=== PATIENT | female | born 1960 | race Caucasian/White ===

== ENCOUNTER 2016-06-23 11:48 | Inpatient (IN) | payer MEDICARE, OTHER ==
[2016-06-23] MEDS ORDERED: Albuterol/Ipratropium 3.0-0.5 MG/3 ML Neb Soln NEB PRN (12:09)
[2016-06-23] MEDS ORDERED: Nitroglycerin 0.4 MG Tab.SL SL PRN (12:10)
[2016-06-23] MEDS: ALPRAZolam 0.5 MG Tab PO PRN (12:41)
[2016-06-23] MEDS: Albuterol/Ipratropium 3.0-0.5 MG/3 ML Neb Soln NEB SCH ×2 (12:41→20:11)
[2016-06-23] MEDS: Azithromycin 250 MG Tab PO SCH (12:41)
[2016-06-23] MEDS: methylPREDNISolone Sodium Succinate 40 MG/1 ML SDV IVPUSH SCH ×2 (12:42→20:08)
[2016-06-23] MEDS: cefTRIAXone 2 GM Vial IVPUSH SCH (12:56)
[2016-06-23] MEDS: traMADol 50 MG Tab PO PRN ×2 (13:05→17:32)
[2016-06-23] MEDS ORDERED: Flu Vaccine 2016-17(36Mos+)/PF 60 MCG/0.5 ML Syringe IM ONE (14:00)
[2016-06-23] MEDS ORDERED: Pneumococcal 23-Valent Conjugate Vaccine 0.5 ML Syringe IM ONE (14:00)
[2016-06-23] MEDS: Albuterol 0.083% 2.5 MG/3 ML Neb Soln NEB PRN ×2 (14:43→17:33)
[2016-06-23] MEDS: tiZANidine 4 MG Tab PO SCH ×2 (15:49→20:08)
[2016-06-23] MEDS: Acetaminophen 325 MG Tab PO PRN ×2 (15:51→20:19)
--- NOTE | 2016-06-23 15:55 | PCM.HP ---
H&P History of Present Illness - General Date of Service: 06/23/16 Admit Problem/Dx: Admission Diagnosis/Problem Admission Diagnosis/Problem Pneumonia Community acquired pneumonia Reactive airway disease - History of Present Illness Initial Comments - Free Text/Narative: 55 yo female admitted to acute care after presenting to the clinic with community acquired pneumonia. Patient was initially seen at the walk-in clinic at [facility] on 06/21 where she was started on prednisone 40 mg daily, Z pack, Tessalon pearls, and Robitussin-codeine. She did not improve and then went into the [facility] ER on 06/22 where lab work was repeated. Patient was sent home without any changes to treatment. Then she presented to [facility] the morning of 06/23 as her symptoms were still not improving. Complained of a dry cough and SOB. No fevers or chills but has been diaphoretic. No congestion or rhinorrhea. Sore throat was present due to the coughing. Lab work and a CXR was repeated. The WBC had increased from 12.0 yesterday to 12.8 today. CRP and creatinine improved. Albuterol nebulizer was given in the clinic but the patient did not find improvement. Katlin was willing to stay for admission as symptoms were not improving with outpatient treatment. Chest Pain Score (Numeric/FACES): 8 - Related Data Allergies/Adverse Reactions: Allergies Allergy/AdvReac Type Severity Reaction Status Date / Time lisinopril Allergy Shortness Verified 06/14/16 10:47 of Breath milnacipran [From Savella] Allergy Cannot Verified 06/14/16 10:47 Remember gabapentin AdvReac Anxiety Verified 06/23/16 13:35 Home Medications: Home Meds Albuterol Sulfate [Proair Hfa] 2 puff IH Q4HR PRN 02/11/16 [History] FLUoxetine [PROzac] 60 mg PO DAILY 02/11/16 [History] Levothyroxine Sodium [Synthroid] 200 mcg PO DAILY 02/11/16 [History] Metoprolol Succinate [Toprol XL] 50 mg PO DAILY 02/11/16 [History] Pravastatin Sodium 80 mg PO DAILY 02/11/16 [History] QUEtiapine Fumarate [Quetiapine Fumarate] 100 mg PO BEDTIME 02/11/16 [History] amLODIPine [Norvasc] 10 mg PO DAILY 02/11/16 [History] metFORMIN [Glucophage] 500 mg PO BIDMEALS 02/11/16 [History] Omeprazole Magnesium [Prilosec Otc] 40 mg PO DAILY 06/14/16 [History] ALPRAZolam [Xanax] 0.5 mg PO TID PRN 06/23/16 [History] Azithromycin [Zithromax] 250 mg PO DAILY 06/23/16 [History] Benzonatate 200 mg PO TID PRN 06/23/16 [History] Codeine Phosphate/Guaifenesin [G Tussin AC Liquid] 5 - 10 ml PO QID PRN [History] Diclofenac Sodium [Voltaren 1% Gel] 2 gm TOP BID 06/23/16 [History] Hydrochlorothiazide 12.5 mg PO DAILY 06/23/16 [History] Levothyroxine Sodium [Synthroid] 75 mcg PO DAILY 06/23/16 [History] Multivitamin [Multiple Vitamins] 1 each PO DAILY 06/23/16 [History] Nitroglycerin [Nitrostat] 0.4 mg SL ASDIRECTED PRN 06/23/16 [History] Prednisone [IMW: predniSONE] 40 mg PO WITHBREAKFAST 06/23/16 [History] Pregabalin [Lyrica] 75 mg PO BID 06/23/16 [History] Ranitidine [Zantac] 150 mg PO BEDTIME 06/23/16 [History] metroNIDAZOLE [Metronidazole] 1 gm TOP BID 06/23/16 [History] tiZANidine [Zanaflex] 4 mg PO TID 06/23/16 [History] traMADol HCl [Ultram] 50 mg PO QID PRN 06/23/16 [History] Past Medical History HEENT History: Reports: None Cardiovascular History: Reports: Heart Failure, High cholesterol, Hypertension Respiratory History: Reports: Asthma Gastrointestinal History: Reports: Other (see below) Other Gastrointestinal History: acid reflux Genitourinary History: Reports: Urinary incontinence Musculoskeletal History: Reports: Arthritis, Back pain, chronic, Neck pain, chronic Neurological History: Reports: Neuropathy, diabetic Psychiatric History: Reports: Anxiety, Depression, Mood swings, Panic attack Endocrine/Metabolic History: Reports: Diabetes, type II - Past Surgical History Cardiovascular Surgical History: Reports: None Respiratory Surgical History: Reports: None GI Surgical History: Reports: None Female Surgical History: Reports: Breast reduction, Hysterectomy Musculoskeletal Surgical History: Reports: Knee replacement Social & Family History - Family History Family Medical History: Unobtainable - Tobacco Use Smoking Status *Q: Former Smoker Used Tobacco, but Quit: Yes Month Tobacco Last Used: Second Hand Smoke Exposure: No - Caffeine Use Caffeine Use: Reports: Soda - Recreational Drug Use Recreational Drug Use: No H&P Review of Systems - Review of Systems: Review Of Systems: See Below General: Reports: fatigue, diaphoresis. Denies: fever, chills HEENT: Reports: sore throat. Denies: ear pain, rhinitis, post nasal drip, sinus congestion Pulmonary: Reports: Shortness of Breath, Wheezing, Cough. Denies: Sputum Cardiovascular: Reports: dyspnea on exertion Exam - Exam Exam: See Below - Vital Signs Vital Signs: Last Vital Signs Temp 37.1 C 06/23/16 14:00 Pulse 89 06/23/16 14:00 Resp 22 H 06/23/16 11:52 BP 155/83 H 06/23/16 14:00 Pulse Ox 94 L 06/23/16 14:00 Weight: 123.831 kg - Exam Quality Assessment: No: supplemental oxygen General: alert, oriented, mild distress HEENT: Mucosa moist & pink, Nares patent, Posterior pharynx clear, TMs clear Lungs: Decreased breath sounds, Rhonchi, Wheezing, Other (Unable to talk or deep breath without coughing, mild respiratory distress ). No: Rales Cardiovascular: regular rate, regular rhythm, normal S1, normal S2 Skin: warm, dry Neuro Extensive - Mental Status: alert, oriented x3, normal mood/affect, normal cognition, memory intact Neuro Extensive - Motor, Sensory, Reflexes: normal gait Psychiatric: alert, normal affect, normal mood *Q Meaningful Use (ADM) - VTE *Q VTE Criteria *Q: - Stroke *Q Stroke Criteria *Q: - AMI *Q AMI Criteria *Q: Problem List Initiated/Reviewed/Updated: Yes Orders Last 24hrs: Active Orders 24 hr Category Date Time Status Admission Status [Patient Status] [ADT] Routine ADT 06/23/16 11:50 Active Patient Status [ADT] Routine ADT 06/23/16 12:00 Active Accu Check [Blood Glucose Check, Bedside] [RC] 07,11,17 Care 06/23/16 12:16 Active ,20 Cooling Warming Measures [RC] .PRN Care 06/23/16 14:50 Active Intake and Output [RC] 06,18 Care 06/23/16 12:02 Active Oxygen Therapy [RC] PRN Care 06/23/16 12:02 Active RT Aerosol Therapy [RC] ASDIRECTED Care 06/23/16 12:07 Active RT Aerosol Therapy [RC] ASDIRECTED Care 06/23/16 12:10 Active Up ad Ana [RC] .PRN Care 06/23/16 12:00 Active Vital Signs [RC] 06,10,14,18,22,02 Care 06/23/16 12:00 Active Regular Diet [DIET] Diet 06/23/16 Lunch Active CBC WITH AUTO DIFF [HEME] Routine Lab 06/24/16 05:11 Ordered CMP [COMPREHENSIVE METABOLIC PN,CMP] [CHEM] Routine Lab 06/24/16 05:11 Ordered ALPRAZolam [Xanax] Med 06/23/16 12:10 Active 0.5 mg PO TID PRN Acetaminophen [Tylenol] Med 06/23/16 12:00 Active 650 mg PO Q4H PRN Albuterol [Proventil Neb Soln] Med 06/23/16 12:05 Active 2.5 mg NEB Q2H PRN Albuterol/Ipratropium [DuoNeb 3.0-0.5 MG/3 ML] Med 06/23/16 13:00 Active 3 ml NEB Q6HRRT Azithromycin [Zithromax] Med 06/23/16 12:30 Active 500 mg PO DAILY Diclofenac Sodium [Voltaren 1% Gel] Med 06/23/16 20:00 Active 2 gm TOP BID FLUoxetine [PROzac] Med 06/24/16 08:00 Active 60 mg PO DAILY Hydrochlorothiazide Med 06/24/16 08:00 Active 12.5 mg PO DAILY Insulin Detemir [Levemir] Med 06/23/16 20:00 Active 8 unit SUBCUT BEDTIME Levothyroxine Med 06/24/16 07:00 Active 75 mcg PO DAILY@0700 Levothyroxine [Synthroid] Med 06/24/16 07:00 Active 200 mcg PO DAILY@0700 Metoprolol Succinate [Toprol XL] Med 06/24/16 08:00 Active 50 mg PO DAILY Multivitamins w-Iron/Ca/FA/Min [Thera M Plus] Med 06/24/16 08:00 Active 1 tab PO DAILY Nitroglycerin [Nitrostat] Med 06/23/16 12:10 Active 0.4 mg SL ASDIRECTED PRN Omeprazole Med 06/24/16 07:00 Active 40 mg PO DAILY@0700 Pregabalin [Lyrica] Med 06/23/16 20:00 Active 75 mg PO BID QUEtiapine [SEROquel] Med 06/23/16 20:00 Active 100 mg PO BEDTIME Simvastatin [Zocor] Med 06/24/16 20:00 Active 20 mg PO BEDTIME amLODIPine [Norvasc] Med 06/24/16 08:00 Active 10 mg PO DAILY cefTRIAXone [Rocephin] Med 06/23/16 13:00 Active 2 gm IVPUSH DAILY methylPREDNISolone Sod Succ [Solu-MEDROL] Med 06/23/16 12:45 Active 40 mg IVPUSH BID tiZANidine [Zanaflex] Med 06/23/16 20:00 Active 4 mg PO TID traMADol [Ultram] Med 06/23/16 12:10 Active 50 mg PO QID PRN K Pad [Heat Therapy] [OM.PC] Routine Oth 06/23/16 14:50 Ordered Code Status [Resuscitation Status] Routine Resus Stat 06/23/16 12:03 Ordered Medication Orders Acetaminophen (Tylenol) 650 mg PO Q4H PRN PRN Reason: analgesia/fever Albuterol (Proventil Neb Soln) 2.5 mg NEB Q2H PRN PRN Reason: Shortness of Breath Last Admin: 06/23/16 14:43 Dose: 2.5 mg Albuterol/Ipratropium (Duoneb 3.0-0.5 Mg/3 Ml) 3 ml NEB Q6HRRT [facility] Last Admin: 06/23/16 12:41 Dose: 3 ml Alprazolam (Xanax) 0.5 mg PO TID PRN PRN Reason: Anxiety Last Admin: 06/23/16 12:41 Dose: 0.5 mg Amlodipine Besylate (Norvasc) 10 mg PO DAILY [facility] Azithromycin (Zithromax) 500 mg PO DAILY [facility] Last Admin: 06/23/16 12:41 Dose: 500 mg Ceftriaxone Sodium (Rocephin) 2 gm IVPUSH DAILY [facility] Last Admin: 06/23/16 12:56 Dose: 2 gm Diclofenac Sodium (Voltaren 1% Gel) 2 gm TOP BID [facility] Fluoxetine HCl (Prozac) 60 mg PO DAILY [facility] Hydrochlorothiazide (Hydrochlorothiazide) 12.5 mg PO DAILY [facility] Insulin Detemir (Levemir) 8 unit SUBCUT BEDTIME [facility] Levothyroxine Sodium (Synthroid) 200 mcg PO DAILY@0700 [facility] Levothyroxine Sodium (Levothyroxine) 75 mcg PO DAILY@0700 [facility] Methylprednisolone Sodium Succinate (Solu-Medrol) 40 mg IVPUSH BID [facility] Last Admin: 06/23/16 12:42 Dose: 40 mg Metoprolol Succinate (Toprol Xl) 50 mg PO DAILY [facility] Multivitamins/Minerals (Thera M Plus) 1 tab PO DAILY [facility] Nitroglycerin (Nitrostat) 0.4 mg SL ASDIRECTED PRN PRN Reason: Chest Pain Omeprazole (Omeprazole) 40 mg PO DAILY@0700 [facility] Pregabalin (Lyrica) 75 mg PO BID [facility] Quetiapine Fumarate (Seroquel) 100 mg PO BEDTIME [facility] Simvastatin (Zocor) 20 mg PO BEDTIME [facility] Tizanidine HCl (Zanaflex) 4 mg PO TID [facility] Tramadol HCl (Ultram) 50 mg PO QID PRN PRN Reason: Pain Last Admin: 06/23/16 13:05 Dose: 50 mg Assessment/Plan Comment:: Community acquired pneumonia Reactive airway disease DM II HTN Hypothyroidism 1. Azithromycin 500 mg PO and Rocephin 2 g IV daily 2. QID Duonebs with prn albuterol nebs Q2H 3. Hold metformin and add 8 units of Levemir 4. QID accuchecks 5. 40 mg IV Solumedrol BID 6. Repeat lab work in the AM 7. Full code
[2016-06-23] MEDS ORDERED: Pregabalin 75 MG Cap PO SCH (20:00)
[2016-06-23] MEDS: QUEtiapine 100 MG Tab PO SCH (20:09)
[2016-06-23] MEDS: Diclofenac Sodium 1% Gel 100 GM Tube TOP SCH (20:11)
[2016-06-23] MEDS: Insulin Detemir 100 Units/ML 3 ML Pen SUBCUT SCH (20:19)
[2016-06-23] MEDS: Pregabalin 25 MG Cap PO SCH (21:21)
[2016-06-24] MEDS: Albuterol/Ipratropium 3.0-0.5 MG/3 ML Neb Soln NEB SCH ×4 (00:41→19:19)
[2016-06-24] MEDS: Acetaminophen 325 MG Tab PO PRN ×3 (01:01→14:08)
[2016-06-24] MEDS: traMADol 50 MG Tab PO PRN ×3 (03:55→19:38)
[2016-06-24] MEDS: Albuterol 0.083% 2.5 MG/3 ML Neb Soln NEB PRN ×3 (04:46→15:53)
[2016-06-24] MEDS: Levothyroxine 100 MCG Tab PO SCH (06:30)
[2016-06-24] MEDS: Levothyroxine 75 MCG Tab PO SCH (06:32)
[2016-06-24] MEDS ORDERED: Omeprazole 20 MG Cap.CR PO SCH (07:00)
[2016-06-24 07:01] LABS: CHLORIDE,CL 98 mmol/L (98-107); SODIUM,NA 138 mmol/L (136-145)
[2016-06-24] MEDS: FLUoxetine 20 MG Cap PO SCH (08:21)
[2016-06-24] MEDS: Multivitamins with Iron/Calcium/Folic Acid/Minerals Tab PO SCH (08:22)
[2016-06-24] MEDS: tiZANidine 4 MG Tab PO SCH ×3 (08:22→19:37)
[2016-06-24] MEDS: Hydrochlorothiazide 12.5 MG Cap PO SCH (08:22)
[2016-06-24] MEDS: Pregabalin 25 MG Cap PO SCH ×2 (08:23→19:37)
[2016-06-24] MEDS: Azithromycin 250 MG Tab PO SCH (08:24)
[2016-06-24] MEDS: Metoprolol Succinate 50 MG Tab.ER PO SCH (08:24)
[2016-06-24] MEDS: amLODIPine 10 MG Tab PO SCH (08:25)
[2016-06-24] MEDS: methylPREDNISolone Sodium Succinate 40 MG/1 ML SDV IVPUSH SCH ×2 (08:26→19:38)
[2016-06-24] MEDS: cefTRIAXone 2 GM Vial IVPUSH SCH (08:27)
[2016-06-24] MEDS: Diclofenac Sodium 1% Gel 100 GM Tube TOP SCH ×2 (08:29→20:41)
--- NOTE | 2016-06-24 08:49 | PCM.PN ---
- General Info Date of Service: 06/24/16 Admission Dx/Problem (Free Text): 55 yo female seen on hospital day 2 for pneumonia. Patient states that she is doing much better today. Will still have some SOB with activity but this is greatly improved. She is still coughing but this continues to be unproductive. No fevers since admission. Nurses were concerned of possible UTI yesterday due to urinary sediment, but UA was negative. Patient does feel she has a yeast infection coming on which is common for her when on antibiotics. Would like to do treatment for this at some point. Her only concern today is regarding her omeprazole. Patient stopped this several weeks ago due to side effects of abdominal cramping and diarrhea. Would like to stop this. Blood sugar was 168 this morning. She is normally on Metformin 500 mg BID when outpatient, but sugars were increased due to the steroids. Currently on 8 units of Levemir at bedtime. No other questions or concerns at this time. - Review of Systems General: Denies: Fever, Chills HEENT: Denies: sinus congestion, sore throat, rhinitis Pulmonary: Reports: shortness of breath (improved ), cough (dry) Cardiovascular: Reports: Other (rib pain/tenderness ) Gastrointestinal: Denies: Abdominal pain, Constipation, Diarrhea - Patient Data Vitals - most recent: Last Vital Signs Temp 36.6 C 06/24/16 05:50 Pulse 82 06/24/16 08:24 Resp 20 06/24/16 05:50 BP 137/77 06/24/16 08:25 Pulse Ox 94 L 06/24/16 05:50 Weight - most recent: 123.831 kg I&O - last 24 hours: Intake & Output 06/23/16 06/24/16 06/24/16 22:59 06:59 14:59 Intake Total 360 400 180 Output Total 450 1100 Balance -90 -700 180 Lab Results last 24 hrs: Laboratory Results - last 24 hr 06/23/16 06/23/16 06/23/16 Range/Units 16:09 16:21 20:15 WBC (4.0-10.0) x10^3/uL RBC (4.00-5.50) x10^6/uL Hgb (12.0-16.0) g/dL Hct (33.0-47.0) % MCV (78.0-93.0) fL MCH (26.0-32.0) pg MCHC (32.0-36.0) g/dL RDW Coeff of Maral (10.0-15.0) % Plt Count (130-400) x10^3/uL Add Manual Diff Neutrophils % (Manual) (50-80) % Band Neutrophils % (0-6) % Lymphocytes % (Manual) (25-50) % Monocytes % (Manual) (2-11) % Basophils % (Manual) (0-1) % Blast Cells % (0) % Platelet Estimate Sodium (136-145) mmol/L Potassium (3.5-5.1) mmol/L Chloride (98-107) mmol/L Carbon Dioxide (21-32) mmol/L BUN (7-18) mg/dL Creatinine (0.55-1.02) mg/dL Est Cr Clr Drug Dosing mL/min Estimated GFR (MDRD) Glucose (74-106) mg/dL POC Glucose 189 H 272 H (74-106) mg/dL Calcium (8.5-10.1) mg/dL Corrected Calcium (8.5-10.1) mg/dL Total Bilirubin (0.2-1.0) mg/dL AST (15-37) U/L ALT (14-59) U/L Alkaline Phosphatase (46-116) U/L Total Protein (6.4-8.2) g/dL Albumin (3.4-5.0) g/dL Globulin Albumin/Globulin Ratio Urine Color Yellow (YELLOW) Urine Appearance Slightly cloudy H (CLEAR) Urine pH 6.5 (5.0-8.0) Ur Specific [place] 1.020 Urine Protein 100 H (NEGATIVE) mg/dL Urine Glucose (UA) Negative (NEGATIVE) mg/dL Urine Ketones Negative (NEGATIVE) mg/dL Urine Occult Blood Small H (NEGATIVE) Urine Nitrite Negative (NEGATIVE) Urine Bilirubin Negative (NEGATIVE) Urine Urobilinogen 0.2 (0.2) EU/dL Ur Leukocyte Esterase Negative (NEGATIVE) Urine RBC 0-5 (NOT SEEN) /HPF Urine WBC 0-5 (NOT SEEN) /HPF Ur Squamous Epith Cells Rare (NEGATIVE) /HPF Amorphous Sediment Few Urine Bacteria Rare (NEGATIVE) /HPF Hyaline Casts Occasional H (NEGATIVE) /HPF Urine Mucus Few H (NEGATIVE) /LPF 06/24/16 06/24/16 06/24/16 Range/Units 06:30 06:30 06:32 WBC 11.6 H (4.0-10.0) x10^3/uL RBC 4.09 (4.00-5.50) x10^6/uL Hgb 12.8 (12.0-16.0) g/dL Hct 38.2 (33.0-47.0) % MCV 93.4 H (78.0-93.0) fL MCH 31.3 (26.0-32.0) pg MCHC 33.5 (32.0-36.0) g/dL RDW Coeff of Maral 14.6 (10.0-15.0) % Plt Count 348 (130-400) x10^3/uL Add Manual Diff Yes Neutrophils % (Manual) 75 (50-80) % Band Neutrophils % 4 (0-6) % Lymphocytes % (Manual) 11 L (25-50) % Monocytes % (Manual) 8 (2-11) % Basophils % (Manual) 1 (0-1) % Blast Cells % 1 H (0) % Platelet Estimate Adequate Sodium 138 (136-145) mmol/L Potassium 4.1 (3.5-5.1) mmol/L Chloride 98 (98-107) mmol/L Carbon Dioxide 30 (21-32) mmol/L BUN 14 (7-18) mg/dL Creatinine 0.8 (0.55-1.02) mg/dL Est Cr Clr Drug Dosing 74.38 mL/min Estimated GFR (MDRD) > 60 Glucose 168 H (74-106) mg/dL POC Glucose 168 H (74-106) mg/dL Calcium 9.2 (8.5-10.1) mg/dL Corrected Calcium 9.68 (8.5-10.1) mg/dL Total Bilirubin 0.3 (0.2-1.0) mg/dL AST 111 H (15-37) U/L ALT 215 H (14-59) U/L Alkaline Phosphatase 168 H (46-116) U/L Total Protein 8.2 (6.4-8.2) g/dL Albumin 3.4 (3.4-5.0) g/dL Globulin 4.8 Albumin/Globulin Ratio 0.71 Urine Color (YELLOW) Urine Appearance (CLEAR) Urine pH (5.0-8.0) Ur Specific [place] Urine Protein (NEGATIVE) mg/dL Urine Glucose (UA) (NEGATIVE) mg/dL Urine Ketones (NEGATIVE) mg/dL Urine Occult Blood (NEGATIVE) Urine Nitrite (NEGATIVE) Urine Bilirubin (NEGATIVE) Urine Urobilinogen (0.2) EU/dL Ur Leukocyte Esterase (NEGATIVE) Urine RBC (NOT SEEN) /HPF Urine WBC (NOT SEEN) /HPF Ur Squamous Epith Cells (NEGATIVE) /HPF Amorphous Sediment Urine Bacteria (NEGATIVE) /HPF Hyaline Casts (NEGATIVE) /HPF Urine Mucus (NEGATIVE) /LPF Med Orders - Current: Current Medications Acetaminophen (Tylenol) 650 mg PO Q4H PRN PRN Reason: analgesia/fever Last Admin: 06/24/16 08:39 Dose: 650 mg Albuterol (Proventil Neb Soln) 2.5 mg NEB Q2H PRN PRN Reason: Shortness of Breath Last Admin: 06/24/16 04:46 Dose: 2.5 mg Albuterol/Ipratropium (Duoneb 3.0-0.5 Mg/3 Ml) 3 ml NEB Q6HRRT [facility] Last Admin: 06/24/16 07:08 Dose: 3 ml Alprazolam (Xanax) 0.5 mg PO TID PRN PRN Reason: Anxiety Last Admin: 06/23/16 12:41 Dose: 0.5 mg Amlodipine Besylate (Norvasc) 10 mg PO DAILY [facility] Last Admin: 06/24/16 08:25 Dose: 10 mg Azithromycin (Zithromax) 500 mg PO DAILY [facility] Last Admin: 06/24/16 08:24 Dose: 500 mg Ceftriaxone Sodium (Rocephin) 2 gm IVPUSH DAILY [facility] Last Admin: 06/24/16 08:27 Dose: 2 gm Diclofenac Sodium (Voltaren 1% Gel) 2 gm TOP BID [facility] Last Admin: 06/24/16 08:29 Dose: 1 applic Fluoxetine HCl (Prozac) 60 mg PO DAILY [facility] Last Admin: 06/24/16 08:21 Dose: 60 mg Hydrochlorothiazide (Hydrochlorothiazide) 12.5 mg PO DAILY [facility] Last Admin: 06/24/16 08:22 Dose: 12.5 mg Insulin Detemir (Levemir) 8 unit SUBCUT BEDTIME [facility] Last Admin: 06/23/16 20:19 Dose: 8 units Levothyroxine Sodium (Synthroid) 200 mcg PO DAILY@0700 [facility] Last Admin: 06/24/16 06:30 Dose: 200 mcg Levothyroxine Sodium (Levothyroxine) 75 mcg PO DAILY@0700 [facility] Last Admin: 06/24/16 06:32 Dose: 75 mcg Methylprednisolone Sodium Succinate (Solu-Medrol) 40 mg IVPUSH BID [facility] Last Admin: 06/24/16 08:26 Dose: 40 mg Metoprolol Succinate (Toprol Xl) 50 mg PO DAILY [facility] Last Admin: 06/24/16 08:24 Dose: 50 mg Multivitamins/Minerals (Thera M Plus) 1 tab PO DAILY [facility] Last Admin: 06/24/16 08:22 Dose: 1 tab Nitroglycerin (Nitrostat) 0.4 mg SL ASDIRECTED PRN PRN Reason: Chest Pain Pregabalin (Lyrica) 75 mg PO BID [facility] Last Admin: 06/24/16 08:23 Dose: 75 mg Quetiapine Fumarate (Seroquel) 100 mg PO BEDTIME [facility] Last Admin: 06/23/16 20:09 Dose: 100 mg Simvastatin (Zocor) 20 mg PO BEDTIME [facility] Tizanidine HCl (Zanaflex) 4 mg PO TID [facility] Last Admin: 06/24/16 08:22 Dose: 4 mg Tramadol HCl (Ultram) 50 mg PO QID PRN PRN Reason: Pain Last Admin: 06/24/16 03:55 Dose: 50 mg Discontinued Medications Influenza Virus Vaccine (Fluzone/Fluarix Vaccine) 60 mcg IM .ONCE ONE Stop: 06/23/16 14:01 Last Admin: 06/23/16 15:52 Dose: 60 mcg Omeprazole (Omeprazole) 40 mg PO DAILY@0700 [facility] Last Admin: 06/24/16 06:32 Dose: 40 mg Pneumococcal Polyvalent Vaccine (Pneumovax 23) 25 mcg IM .ONCE ONE Stop: 06/23/16 14:01 Last Admin: 06/23/16 15:49 Dose: 25 mcg Pregabalin (Lyrica) 75 mg PO BID [facility] Last Admin: 06/24/16 07:29 Dose: Not Given - Exam Quality Assessment: No: supplemental oxygen General: alert, oriented Lungs: Rhonchi (middle lung oneal bilaterally ), Wheezing Cardiovascular: Regular Rate, Regular Rhythm, No Murmurs Extremities: no edema Skin: warm, dry Psy/Mental Status: alert, normal affect, normal mood - Problem List Review Problem List Initiated/Reviewed/Updated: Yes - My Orders Last 24 Hours: My Active Orders 06/23/16 11:50 Admission Status [Patient Status] [ADT] Routine 06/23/16 12:00 Patient Status [ADT] Routine Up ad Ana [RC] .PRN Vital Signs [RC] 06,10,14,18,22,02 Acetaminophen [Tylenol] 650 mg PO Q4H PRN 06/23/16 12:02 Intake and Output [RC] 06,18 Oxygen Therapy [RC] .PRN 06/23/16 12:03 Code Status [Resuscitation Status] Routine 06/23/16 12:05 Albuterol [Proventil Neb Soln] 2.5 mg NEB Q2H PRN 06/23/16 12:07 RT Aerosol Therapy [RC] ASDIRECTED 06/23/16 12:10 RT Aerosol Therapy [RC] ASDIRECTED ALPRAZolam [Xanax] 0.5 mg PO TID PRN Nitroglycerin [Nitrostat] 0.4 mg SL ASDIRECTED PRN traMADol [Ultram] 50 mg PO QID PRN 06/23/16 12:16 Accu Check [Blood Glucose Check, Bedside] [RC] 07,11,17,20 06/23/16 12:30 Azithromycin [Zithromax] 500 mg PO DAILY 06/23/16 12:45 methylPREDNISolone Sod Succ [Solu-MEDROL] 40 mg IVPUSH BID 06/23/16 13:00 Albuterol/Ipratropium [DuoNeb 3.0-0.5 MG/3 ML] 3 ml NEB Q6HRRT cefTRIAXone [Rocephin] 2 gm IVPUSH DAILY 06/23/16 14:50 Cooling Warming Measures [RC] .PRN K Pad [Heat Therapy] [OM.PC] Routine 06/23/16 20:00 Diclofenac Sodium [Voltaren 1% Gel] 2 gm TOP BID Insulin Detemir [Levemir] 8 unit SUBCUT BEDTIME QUEtiapine [SEROquel] 100 mg PO BEDTIME tiZANidine [Zanaflex] 4 mg PO TID 06/23/16 20:55 Pregabalin [Lyrica] 75 mg PO BID 06/23/16 Lunch Regular Diet [DIET] 06/24/16 07:00 Levothyroxine 75 mcg PO DAILY@0700 Levothyroxine [Synthroid] 200 mcg PO DAILY@0700 06/24/16 08:00 FLUoxetine [PROzac] 60 mg PO DAILY Hydrochlorothiazide 12.5 mg PO DAILY Metoprolol Succinate [Toprol XL] 50 mg PO DAILY Multivitamins w-Iron/Ca/FA/Min [Thera M Plus] 1 tab PO DAILY amLODIPine [Norvasc] 10 mg PO DAILY 06/24/16 20:00 Simvastatin [Zocor] 20 mg PO BEDTIME 06/25/16 05:11 BASIC METABOLIC PANEL,BMP [CHEM] Routine CBC WITH AUTO DIFF [HEME] Routine - Plan Plan:: Community acquired pneumonia Reactive airway disease DM II HTN Hypothyroidism 1. Continue Azithromycin 500 mg PO and Rocephin 2 g IV daily 2. QID Duonebs with prn albuterol nebs Q2H 3. Hold metformin and add 8 units of Levemir. Continue current dose at this time. Will restart Metformin at discharge. 4. QID accuchecks 5. Continue 40 mg IV Solumedrol BID 6. Repeat lab work in the AM 7. Full code 8. UA negative for infection 9. Will send prescription for fluconazole at discharge. Recommend taking the treatment at the end of antibiotic therapy. 10. Anticipate discharge tomorrow
[2016-06-24] MEDS: ALPRAZolam 0.5 MG Tab PO PRN ×2 (14:32→16:49)
[2016-06-24] MEDS: Insulin Detemir 100 Units/ML 3 ML Pen SUBCUT SCH (19:16)
[2016-06-24] MEDS: QUEtiapine 100 MG Tab PO SCH (19:37)
[2016-06-24] MEDS ORDERED: Simvastatin 20 MG Tab PO SCH (20:00)
[2016-06-25] MEDS: Albuterol/Ipratropium 3.0-0.5 MG/3 ML Neb Soln NEB SCH ×2 (00:10→07:06)
[2016-06-25] MEDS: ALPRAZolam 0.5 MG Tab PO PRN (00:32)
[2016-06-25] MEDS: Acetaminophen 325 MG Tab PO PRN (00:32)
[2016-06-25] MEDS: traMADol 50 MG Tab PO PRN (05:21)
[2016-06-25 05:51] VITALS: BP 149/87
[2016-06-25] MEDS: Levothyroxine 100 MCG Tab PO SCH (06:13)
[2016-06-25] MEDS: Levothyroxine 75 MCG Tab PO SCH (06:13)
[2016-06-25 06:55] LABS: CHLORIDE,CL 99 mmol/L (98-107); SODIUM,NA 138 mmol/L (136-145)
[2016-06-25] MEDS: FLUoxetine 20 MG Cap PO SCH (08:09)
[2016-06-25] MEDS: Multivitamins with Iron/Calcium/Folic Acid/Minerals Tab PO SCH (08:10)
[2016-06-25] MEDS: Azithromycin 250 MG Tab PO SCH (08:10)
[2016-06-25] MEDS: Metoprolol Succinate 50 MG Tab.ER PO SCH (08:10)
[2016-06-25] MEDS: amLODIPine 10 MG Tab PO SCH (08:12)
[2016-06-25] MEDS: tiZANidine 4 MG Tab PO SCH (08:12)
[2016-06-25] MEDS: Hydrochlorothiazide 12.5 MG Cap PO SCH (08:12)
[2016-06-25] MEDS: Pregabalin 25 MG Cap PO SCH (08:13)
[2016-06-25] MEDS: methylPREDNISolone Sodium Succinate 40 MG/1 ML SDV IVPUSH SCH (08:14)
[2016-06-25] MEDS: Diclofenac Sodium 1% Gel 100 GM Tube TOP SCH (08:16)
[2016-06-25] MEDS: cefTRIAXone 2 GM Vial IVPUSH SCH (08:19)
--- NOTE | 2016-06-25 11:32 | PCM.DCSUM1 ---
Discharge Summary - Discharge Data Discharge Date: 06/25/16 Discharge Disposition: Home, Self-Care 01 Condition: Good - Patient Instructions Diet: Usual Diet as Tolerated Activity: As Tolerated, Cough & Deep Breathe, Rest and Relax Today Driving: May Drive Today Showering/Bathing: May Shower Notify Provider of: Fever, Increased Pain Other/Special Instructions: 1. Schedule an appointment for a 1 week follow-up. This can be scheduled for [place] if you prefer. 2. Take 20 mg of prednisone once daily for 5 more days. 3. Take Ceftin 500 mg twice daily for 5 days. 4. Continue nebulizer every 2 hours as needed for shortness of breath or coughing. May use inhaler instead if symptoms are not severe. 5. Return to the clinic or the ER if symptoms worsen or do not continue to improve. 6. Take fluconazole pill towards the end of the antibiotic prescription and repeat 1 pill in 3 days. This should clear the yeast infection. - Discharge Plan Prescriptions/Med Rec: Albuterol [IJD: Albuterol] 2.5 mg NEB Q2H PRN #1 box PRN Reason: Shortness Of Breath Cefuroxime [Ceftin] 500 mg PO BID #10 tablet Fluconazole [IJD: Fluconazole] 150 mg PO ASDIRECTED #2 tab Prednisone [IJD: predniSONE] 20 mg PO WITHBREAKFAST #5 tab Home Medications: Home Meds Albuterol Sulfate [Proair Hfa] 2 puff IH Q4HR PRN 02/11/16 [History] FLUoxetine [PROzac] 60 mg PO DAILY 02/11/16 [History] Levothyroxine Sodium [Synthroid] 200 mcg PO DAILY 02/11/16 [History] Metoprolol Succinate [Toprol XL] 50 mg PO DAILY 02/11/16 [History] QUEtiapine Fumarate [Quetiapine Fumarate] 100 mg PO BEDTIME 02/11/16 [History] amLODIPine [Norvasc] 10 mg PO DAILY 02/11/16 [History] metFORMIN [Glucophage] 500 mg PO BIDMEALS 02/11/16 [History] ALPRAZolam [Xanax] 0.5 mg PO TID PRN 06/23/16 [History] Multivitamin [Multiple Vitamins] 1 each PO DAILY 06/23/16 [History] Pregabalin [Lyrica] 75 mg PO BID 06/23/16 [History] Ranitidine [Zantac] 150 mg PO BEDTIME 06/23/16 [History] metroNIDAZOLE [Metronidazole] 1 gm TOP BID 06/23/16 [History] tiZANidine [Zanaflex] 4 mg PO TID 06/23/16 [History] traMADol HCl [Ultram] 50 mg PO QID PRN 06/23/16 [History] Albuterol [IJD: Albuterol] 2.5 mg NEB Q2H PRN #1 box 06/25/16 [Rx] Cefuroxime [Ceftin] 500 mg PO BID #10 tablet 06/25/16 [Rx] Fluconazole [IJD: Fluconazole] 150 mg PO ASDIRECTED #2 tab 06/25/16 [Rx] Hydrochlorothiazide 12.5 mg PO DAILY cap 06/25/16 [Rx] Levothyroxine 75 mcg PO DAILY@0700 tablet 06/25/16 [Rx] Nitroglycerin [IJP: Nitroglycerin] 0.4 mg SL ASDIRECTED PRN #0 tablet, sublingual 06/25/16 [Rx] Prednisone [IJD: predniSONE] 20 mg PO WITHBREAKFAST #5 tab 06/25/16 [Rx] Simvastatin [Zocor] 20 mg PO BEDTIME tablet 06/25/16 [Rx] - General Info Date of Service: 06/25/16 Admission Dx/Problem (Free Text: Community acquire pneumonia Reactive airway disease HTN DM II Hypothyroidism 55 yo female seen on hospital day 3 for community acquired pneumonia. Patient states that she is doing much better today and would like to go home. She is still coughing but feels this is improved. Describes the cough as dry. Does have SOB but only with activity. Was able to walk down the [place] today and get coffee without SOB. No fevers since admission. She was treated with Azithromycin 500 mg and Rocephin 2 mg IV. Did have 3 days of Azithromycin prior to her admission. She was also given Solumedrol 40 mg IV BID and QID scheduled Duonebs with prn albuterol nebs in between. WBC did increase slightly from yesterday but this may be related to the steroids. Blood sugars have been running right around 200 since her stay. Was 180 this morning. She was placed on 8 units of Levemir in place of her Metformin 500 mg BID. Last A1C was 5.9 in September 2015. Patient has had increased sugars since starting Prednisone 40 mg on Wednesday 06/21 when she was seen at the walk-in clinic. She did have concerns of a yeast infection that we agreed to treat near the end of her antibiotic therapy. She was having a discharge and irritation. States that she normally gets yeast infections with antibiotic use. Ua was negative for infection. - Review of Systems General: Denies: Fever Pulmonary: Reports: shortness of breath (improved ), cough (dry ). Denies: sputum, wheezing Gastrointestinal: Denies: Abdominal pain Genitourinary: Reports: other (vaginal discharge and irritation ) - Patient Data Vitals - Most Recent: Last Vital Signs Temp 36.2 C 06/25/16 05:49 Pulse 67 06/25/16 08:10 Resp 20 06/25/16 05:49 BP 149/87 H 06/25/16 08:12 Pulse Ox 94 L 06/25/16 05:49 Weight - Most Recent: 123.831 kg I&O - Last 24 hours: Intake & Output 06/24/16 06/25/16 06/25/16 22:59 06:59 14:59 Intake Total 300 240 Output Total 3300 350 250 Balance -3300 -50 -10 Lab Results - Last 24 hrs: Laboratory Results - last 24 hr 06/24/16 06/24/16 06/24/16 Range/Units 11:03 17:02 20:30 WBC (4.0-10.0) x10^3/uL RBC (4.00-5.50) x10^6/uL Hgb (12.0-16.0) g/dL Hct (33.0-47.0) % MCV (78.0-93.0) fL MCH (26.0-32.0) pg MCHC (32.0-36.0) g/dL RDW Coeff of Maral (10.0-15.0) % Plt Count (130-400) x10^3/uL Add Manual Diff Neutrophils % (Manual) (50-80) % Band Neutrophils % (0-6) % Lymphocytes % (Manual) (25-50) % Monocytes % (Manual) (2-11) % Metamyelocytes % (0) % Platelet Estimate Sodium (136-145) mmol/L Potassium (3.5-5.1) mmol/L Chloride (98-107) mmol/L Carbon Dioxide (21-32) mmol/L BUN (7-18) mg/dL Creatinine (0.55-1.02) mg/dL Est Cr Clr Drug Dosing mL/min Estimated GFR (MDRD) Glucose (74-106) mg/dL POC Glucose 207 H 276 H 210 H (74-106) mg/dL Calcium (8.5-10.1) mg/dL 06/25/16 06/25/16 06/25/16 Range/Units 06:10 06:26 06:26 WBC 12.1 H (4.0-10.0) x10^3/uL RBC 4.21 (4.00-5.50) x10^6/uL Hgb 13.1 (12.0-16.0) g/dL Hct 39.3 (33.0-47.0) % MCV 93.3 H (78.0-93.0) fL MCH 31.1 (26.0-32.0) pg MCHC 33.3 (32.0-36.0) g/dL RDW Coeff of Maral 14.7 (10.0-15.0) % Plt Count 374 (130-400) x10^3/uL Add Manual Diff Yes Neutrophils % (Manual) 65 (50-80) % Band Neutrophils % 4 (0-6) % Lymphocytes % (Manual) 25 (25-50) % Monocytes % (Manual) 5 (2-11) % Metamyelocytes % 1 H (0) % Platelet Estimate Adequate Sodium 138 (136-145) mmol/L Potassium 4.4 (3.5-5.1) mmol/L Chloride 99 (98-107) mmol/L Carbon Dioxide 29 (21-32) mmol/L BUN 16 (7-18) mg/dL Creatinine 0.8 (0.55-1.02) mg/dL Est Cr Clr Drug Dosing 74.38 mL/min Estimated GFR (MDRD) > 60 Glucose 179 H (74-106) mg/dL POC Glucose 180 H (74-106) mg/dL Calcium 9.2 (8.5-10.1) mg/dL Med Orders - Current: Current Medications Discontinued Medications Acetaminophen (Tylenol) 650 mg PO Q4H PRN PRN Reason: analgesia/fever Last Admin: 06/25/16 00:32 Dose: 650 mg Albuterol (Proventil Neb Soln) 2.5 mg NEB Q2H PRN PRN Reason: Shortness of Breath Last Admin: 06/24/16 15:53 Dose: 2.5 mg Albuterol/Ipratropium (Duoneb 3.0-0.5 Mg/3 Ml) 3 ml NEB Q6HRRT [facility] Last Admin: 06/25/16 07:06 Dose: 3 ml Alprazolam (Xanax) 0.5 mg PO TID PRN PRN Reason: Anxiety Last Admin: 06/25/16 00:32 Dose: 0.5 mg Amlodipine Besylate (Norvasc) 10 mg PO DAILY [facility] Last Admin: 06/25/16 08:12 Dose: 10 mg Azithromycin (Zithromax) 500 mg PO DAILY [facility] Last Admin: 06/25/16 08:10 Dose: 500 mg Ceftriaxone Sodium (Rocephin) 2 gm IVPUSH DAILY [facility] Last Admin: 06/25/16 08:19 Dose: 2 gm Diclofenac Sodium (Voltaren 1% Gel) 2 gm TOP BID [facility] Last Admin: 06/25/16 08:16 Dose: 1 applic Fluoxetine HCl (Prozac) 60 mg PO DAILY [facility] Last Admin: 06/25/16 08:09 Dose: 60 mg Hydrochlorothiazide (Hydrochlorothiazide) 12.5 mg PO DAILY [facility] Last Admin: 06/25/16 08:12 Dose: 12.5 mg Influenza Virus Vaccine (Fluzone/Fluarix Vaccine) 60 mcg IM .ONCE ONE Stop: 06/23/16 14:01 Last Admin: 06/23/16 15:52 Dose: 60 mcg Insulin Detemir (Levemir) 8 unit SUBCUT BEDTIME [facility] Last Admin: 06/24/16 19:16 Dose: 8 units Levothyroxine Sodium (Synthroid) 200 mcg PO DAILY@0700 [facility] Last Admin: 06/25/16 06:13 Dose: 200 mcg Levothyroxine Sodium (Levothyroxine) 75 mcg PO DAILY@0700 [facility] Last Admin: 06/25/16 06:13 Dose: 75 mcg Methylprednisolone Sodium Succinate (Solu-Medrol) 40 mg IVPUSH BID [facility] Last Admin: 06/25/16 08:14 Dose: 40 mg Metoprolol Succinate (Toprol Xl) 50 mg PO DAILY [facility] Last Admin: 06/25/16 08:10 Dose: 50 mg Multivitamins/Minerals (Thera M Plus) 1 tab PO DAILY [facility] Last Admin: 06/25/16 08:10 Dose: 1 tab Nitroglycerin (Nitrostat) 0.4 mg SL ASDIRECTED PRN PRN Reason: Chest Pain Omeprazole (Omeprazole) 40 mg PO DAILY@0700 [facility] Last Admin: 06/24/16 06:32 Dose: 40 mg Pneumococcal Polyvalent Vaccine (Pneumovax 23) 25 mcg IM .ONCE ONE Stop: 06/23/16 14:01 Last Admin: 06/23/16 15:49 Dose: 25 mcg Pregabalin (Lyrica) 75 mg PO BID [facility] Last Admin: 06/24/16 07:29 Dose: Not Given Pregabalin (Lyrica) 75 mg PO BID [facility] Last Admin: 06/25/16 08:13 Dose: 75 mg Quetiapine Fumarate (Seroquel) 100 mg PO BEDTIME [facility] Last Admin: 06/24/16 19:37 Dose: 100 mg Simvastatin (Zocor) 20 mg PO BEDTIME [facility] Last Admin: 06/24/16 19:37 Dose: 20 mg Tizanidine HCl (Zanaflex) 4 mg PO TID [facility] Last Admin: 06/25/16 08:12 Dose: 4 mg Tramadol HCl (Ultram) 50 mg PO QID PRN PRN Reason: Pain Last Admin: 06/25/16 05:21 Dose: 50 mg - Exam Quality Assessment: Denies: supplemental oxygen General: Reports: alert, oriented Lungs: Reports: Normal respiratory effort, Wheezing (mild in the R mid to upper lung field ). Denies: Decreased breath sounds, Rales, Rhonchi Cardiovascular: Reports: Regular Rate, Regular Rhythm, No Murmurs Abdomen: Reports: bowel sounds present, soft, no tenderness, no distension Extremities: Reports: no edema Skin: Reports: warm, dry Psy/Mental Status: Reports: alert, normal affect, normal mood *Q Meaningful Use (DIS) - VTE *Q VTE Criteria *Q: - Stroke *Q Stroke Criteria *Q: - AMI *Q AMI Criteria *Q:
== END 2016-06-25 09:40 | disposition home or self-care (01) | DRG 195 ==
LOC: VM.MS 11:51
PROVIDERS: ADMIT Physician Assistant; ATTEND Physician Assistant
DX: J18.9 Pneumonia, unspecified organism (principal); J45.909 Unspecified asthma, uncomplicated; I10 Essential (primary) hypertension; E03.9 Hypothyroidism, unspecified; I50.9 Heart failure, unspecified; M54.9 Dorsalgia, unspecified; G89.29 Other chronic pain; M19.90 Unspecified osteoarthritis, unspecified site; E11.40 Type 2 diabetes mellitus with diabetic neuropathy, unspecified; E11.65 Type 2 diabetes mellitus with hyperglycemia; Z79.84 Long term (current) use of oral hypoglycemic drugs; K21.9 Gastro-esophageal reflux disease without esophagitis; F41.8 Other specified anxiety disorders; Z87.891 Personal history of nicotine dependence; Z79.4 Long term (current) use of insulin; Z23 Encounter for immunization
CPT/HCPCS: 36415; 80048; 80053; 81001; 82962; 85025; 90686; 94640; 94640-76; 94760; A9270-GY; G0008; G0009; J0696; J1815-GY; J2920; J7620-GY

== ENCOUNTER 2016-07-07 10:24 | Inpatient (IN) | payer MEDICARE ==
[~2016-07-07 10:24] MED LIST: Levofloxacin 250 MG Tab PO SCH
[2016-07-07] MEDS ORDERED: Sodium Chloride 0.9% 500 ML IV ONE (12:07)
[2016-07-07] MEDS ORDERED: Nitroglycerin 0.4 MG Tab.SL SL PRN (12:08)
[2016-07-07] MEDS ORDERED: Albuterol 0.083% 2.5 MG/3 ML Neb Soln INH PRN (12:08)
[2016-07-07] MEDS ORDERED: Sodium Chloride 0.9% 100 ML IV ONE (12:33)
[2016-07-07] MEDS ORDERED: Iopamidol 612 MG/ML 100 ML Bottle IVPUSH ONE (12:33)
[2016-07-07] MEDS: Levofloxacin 250 MG Tab PO SCH (13:17)
[2016-07-07] MEDS: Acetaminophen 325 MG Tab PO PRN (14:22)
[2016-07-07] MEDS: Sodium Chloride 0.9% 1,000 ML IV SCH ×2 (14:22→18:02)
--- NOTE | 2016-07-07 16:29 | PCM.HP ---
H&P History of Present Illness - General Date of Service: 07/07/16 Admit Problem/Dx: Admission Diagnosis/Problem Admission Diagnosis/Problem Pneumonia - History of Present Illness Initial Comments - Free Text/Narative: 55 yo female was admitted after being seen in the [facility] for hemoptysis. She developed the hemoptysis early this morning and experienced 6 episodes. Admits to a cough but feels this has improved since her admission 2 weeks ago for pneumonia. Describes the cough as mostly dry but occasionally productive. Does have SOB that is worse with activity. O2 was 90% on RA in the clinic. No known fevers but has been diaphoretic. Denies rhinorrhea or congestion. CXR did show new infiltrates to the L middle and lower lung oneal. Lab work was significant for WBC of 13.6 and seg neutrophils of 8.9. She was admitted to [facility] on 06/23 for pneumonia that was treated with Azithromycin, Rocephin, and Solumedrol. Patient was discharged 2 days later. She was doing well at her 1 week hospital follow-up but worsened over the last few days. Does not need the nebulizer or inhaler. Has not been using cough medications. HX significant for smoking roughly 50 years. Patient quit about 5 -7 years ago. No definite hx of asthma or COPD as she has not had PTFs. Blood pressure was 80/58 in the clinic. She has been eating and drinking ok. Back Pain Score (Numeric/FACES): 6 - Related Data Allergies/Adverse Reactions: Allergies Allergy/AdvReac Type Severity Reaction Status Date / Time lisinopril Allergy Shortness Verified 07/07/16 10:54 of Breath milnacipran [From [place]] Allergy Cannot Verified 07/07/16 10:54 Remember gabapentin AdvReac Anxiety Verified 07/07/16 10:54 Home Medications: Home Meds Albuterol Sulfate [Proair Hfa] 2 puff IH Q4HR PRN 02/11/16 [History] FLUoxetine [PROzac] 60 mg PO DAILY 02/11/16 [History] Levothyroxine Sodium [Synthroid] 200 mcg PO DAILY 02/11/16 [History] Metoprolol Succinate [Toprol XL] 50 mg PO DAILY 02/11/16 [History] QUEtiapine Fumarate [Quetiapine Fumarate] 100 mg PO BEDTIME 02/11/16 [History] amLODIPine [Norvasc] 10 mg PO DAILY 02/11/16 [History] metFORMIN [Glucophage] 500 mg PO BIDMEALS 02/11/16 [History] ALPRAZolam [Xanax] 0.5 mg PO TID PRN 06/23/16 [History] Multivitamin [Multiple Vitamins] 1 each PO DAILY 06/23/16 [History] Pregabalin [Lyrica] 75 mg PO BID 06/23/16 [History] metroNIDAZOLE [Metronidazole] 1 gm TOP BID 06/23/16 [History] tiZANidine [Zanaflex] 4 mg PO TID 06/23/16 [History] Albuterol [IJD: Albuterol] 2.5 mg NEB Q2H PRN #1 box 06/25/16 [Rx] Hydrochlorothiazide 12.5 mg PO DAILY cap 06/25/16 [Rx] Levothyroxine 75 mcg PO DAILY@0700 tablet 06/25/16 [Rx] Nitroglycerin [IJP: Nitroglycerin] 0.4 mg SL ASDIRECTED PRN #0 tablet, sublingual 06/25/16 [Rx] Diclofenac Sodium [Voltaren 1% Gel] 2 gm TOP BID 07/07/16 [History] Hydrocodone/Acetaminophen [[place] 10-325 Tablet] 1 each PO TID 07/07/16 [History] Omeprazole Magnesium [Prilosec Otc] 40 mg PO DAILY 07/07/16 [History] Pravastatin Sodium 80 mg PO DAILY 07/07/16 [History] Past Medical History HEENT History: Reports: None Cardiovascular History: Reports: Heart Failure, High cholesterol, Hypertension Respiratory History: Reports: Asthma Gastrointestinal History: Reports: Other (see below) Other Gastrointestinal History: acid reflux Genitourinary History: Reports: Urinary incontinence Musculoskeletal History: Reports: Arthritis, Back pain, chronic, Neck pain, chronic Neurological History: Reports: Neuropathy, diabetic Psychiatric History: Reports: Anxiety, Depression, Mood swings, Panic attack Endocrine/Metabolic History: Reports: Diabetes, type II - Past Surgical History Cardiovascular Surgical History: Reports: None Respiratory Surgical History: Reports: None GI Surgical History: Reports: None Female Surgical History: Reports: Breast reduction, Hysterectomy Musculoskeletal Surgical History: Reports: Knee replacement Social & Family History - Family History Family Medical History: Noncontributory - Tobacco Use Smoking Status *Q: Former Smoker Used Tobacco, but Quit: Yes Month Tobacco Last Used: 2011 Second Hand Smoke Exposure: No - Caffeine Use Caffeine Use: Reports: Coffee, Soda - Recreational Drug Use Recreational Drug Use: No H&P Review of Systems - Review of Systems: Review Of Systems: See Below General: Reports: diaphoresis. Denies: fever, chills HEENT: Denies: rhinitis, post nasal drip, sinus congestion, sore throat Pulmonary: Reports: Shortness of Breath, Cough, Hemoptysis Cardiovascular: Denies: chest pain Musculoskeletal: Reports: neck pain, back pain, other (myalgias ) Exam - Exam Exam: See Below - Vital Signs Vital Signs: Last Vital Signs Temp 36.7 C 07/07/16 13:12 Pulse 61 07/07/16 13:12 Resp 20 07/07/16 13:12 BP 108/70 07/07/16 13:12 Pulse Ox 90 L 07/07/16 15:00 Weight: 122.742 kg - Exam Quality Assessment: No: supplemental oxygen General: alert, oriented, cooperative HEENT: Conjunctiva clear, Mucosa moist & pink, Nares patent, Normal nasal septum , Posterior pharynx clear, Pupils equal, Pupils reactive Lungs: Normal respiratory effort, Decreased breath sounds, Rhonchi (Rhonchi in the lower lung oneal bilaterally ). No: Crackles, Rales, Wheezing Cardiovascular: regular rate, regular rhythm, normal S1, normal S2 Skin: dry, intact Neuro Extensive - Mental Status: alert, oriented x3, normal mood/affect, normal cognition, memory intact Neuro Extensive - Motor, Sensory, Reflexes: normal gait Psychiatric: alert, normal affect, normal mood *Q Meaningful Use (ADM) - VTE *Q VTE Criteria *Q: - Stroke *Q Stroke Criteria *Q: - AMI *Q AMI Criteria *Q: Problem List Initiated/Reviewed/Updated: Yes Orders Last 24hrs: Active Orders 24 hr Category Date Time Status Admission Status [Patient Status] [ADT] Routine ADT 07/07/16 10:29 Active Patient Status [ADT] Routine ADT 07/07/16 12:12 Active Accu Check [Blood Glucose Check, Bedside] [RC] 07,11,17 Care 07/07/16 12:21 Active ,20 Intake and Output [RC] 06,18 Care 07/07/16 12:12 Active Oxygen Therapy [RC] 08,20 Care 07/07/16 12:12 Active Up ad Ana [RC] , Care 07/07/16 12:12 Active Vital Signs [RC] 02,06,10,14,18,22 Care 07/07/16 12:12 Active Regular Diet [DIET] Diet 07/07/16 Lunch Active Chest w Cont [CT] Routine Exams 07/07/16 12:20 Taken BMP [BASIC METABOLIC PANEL,BMP] [CHEM] Routine Lab 07/08/16 05:11 Ordered CBC WITH AUTO DIFF [HEME] Routine Lab 07/08/16 05:11 Ordered ALPRAZolam [Xanax] Med 07/07/16 12:08 Active 0.5 mg PO TID PRN Acetaminophen [Tylenol] Med 07/07/16 12:12 Active 650 mg PO Q4H PRN Acetaminophen/HYDROcodone [[place] 325-10 MG] Med 07/07/16 20:00 Active 1 tab PO TID Albuterol [Proventil Neb Soln] Med 07/07/16 12:08 Active 2.5 mg INH Q4HR PRN Diclofenac Sodium [Voltaren 1% Gel] Med 07/07/16 20:00 Active 0 gm TOP BID FLUoxetine [PROzac] Med 07/08/16 08:00 Active 60 mg PO DAILY Hydrochlorothiazide Med 07/08/16 08:00 Active 12.5 mg PO DAILY Insulin Detemir [Levemir] Med 07/08/16 08:00 Active 8 unit SUBCUT DAILY Levofloxacin [Levaquin] Med 07/07/16 12:45 Active 750 mg PO DAILY@0700 Levothyroxine Med 07/08/16 07:00 Active 75 mcg PO DAILY@0700 Levothyroxine [Synthroid] Med 07/08/16 07:00 Active 200 mcg PO DAILY@0700 Metoprolol Succinate [Toprol XL] Med 07/08/16 08:00 Active 50 mg PO DAILY Multivitamins w-Iron/Ca/FA/Min [Thera M Plus] Med 07/08/16 08:00 Active 1 tab PO DAILY Nitroglycerin [Nitrostat] Med 07/07/16 12:08 Active 0.4 mg SL ASDIRECTED PRN Omeprazole Med 07/08/16 07:00 Active 40 mg PO DAILY@0700 Pregabalin [Lyrica] Med 07/07/16 20:00 Active 75 mg PO BID QUEtiapine [SEROquel] Med 07/07/16 20:00 Active 100 mg PO BEDTIME Simvastatin [Zocor] Med 07/08/16 20:00 Active 20 mg PO BEDTIME Sodium Chloride 0.9% [Normal Saline] 1,000 ml Med 07/07/16 12:15 Active IV ASDIRECTED amLODIPine [Norvasc] Med 07/08/16 08:00 Active 10 mg PO DAILY tiZANidine [Zanaflex] Med 07/07/16 20:00 Active 4 mg PO TID Code Status [Resuscitation Status] Routine Resus Stat 07/07/16 12:12 Ordered Medication Orders Acetaminophen (Tylenol) 650 mg PO Q4H PRN PRN Reason: analgesia/fever Last Admin: 07/07/16 14:22 Dose: 650 mg Hydrocodone Bitart/Acetaminophen ([place] 325-10 Mg) 1 tab PO TID [facility] Albuterol (Proventil Neb Soln) 2.5 mg INH Q4HR PRN PRN Reason: Shortness of Breath Alprazolam (Xanax) 0.5 mg PO TID PRN PRN Reason: Anxiety Amlodipine Besylate (Norvasc) 10 mg PO DAILY [facility] Diclofenac Sodium (Voltaren 1% Gel) 0 gm TOP BID [facility] Fluoxetine HCl (Prozac) 60 mg PO DAILY [facility] Hydrochlorothiazide (Hydrochlorothiazide) 12.5 mg PO DAILY [facility] Sodium Chloride (Normal Saline) 1,000 mls @ 125 mls/hr IV ASDIRECTED [facility] Last Admin: 07/07/16 14:22 Dose: 125 mls/hr Insulin Detemir (Levemir) 8 unit SUBCUT DAILY [facility] Levofloxacin (Levaquin) 750 mg PO DAILY@0700 [facility] Last Admin: 07/07/16 13:17 Dose: 750 mg Levothyroxine Sodium (Levothyroxine) 75 mcg PO DAILY@0700 [facility] Levothyroxine Sodium (Synthroid) 200 mcg PO DAILY@0700 [facility] Metoprolol Succinate (Toprol Xl) 50 mg PO DAILY [facility] Multivitamins/Minerals (Thera M Plus) 1 tab PO DAILY [facility] Nitroglycerin (Nitrostat) 0.4 mg SL ASDIRECTED PRN PRN Reason: Chest Pain Omeprazole (Omeprazole) 40 mg PO DAILY@0700 [facility] Pregabalin (Lyrica) 75 mg PO BID [facility] Quetiapine Fumarate (Seroquel) 100 mg PO BEDTIME [facility] Simvastatin (Zocor) 20 mg PO BEDTIME [facility] Tizanidine HCl (Zanaflex) 4 mg PO TID [facility] Assessment/Plan Comment:: Community acquired pneumonia Hemoptysis HTN DM II Hx tobacco use 1. Normal saline bolus of 500 mL followed by 125 mL rate 2. Start Levaquin 750 mg once daily for [address] with contrast 4. Recheck lab work in the morning 5. O2 supplement as needed to keep O2 above 92% 6. Hold metformin and start Levemir 8 units daily 7. QID accuchecks 8. Full code
[2016-07-07] MEDS: Diclofenac Sodium 1% Gel 100 GM Tube TOP SCH ×2 (17:59→19:01)
[2016-07-07] MEDS: Pregabalin 25 MG Cap PO SCH ×2 (18:00→19:01)
[2016-07-07] MEDS: tiZANidine 4 MG Tab PO SCH ×2 (18:00→19:01)
[2016-07-07] MEDS: Acetaminophen/HYDROcodone 325-10 MG Tab PO SCH ×2 (18:00→19:01)
[2016-07-07] MEDS: QUEtiapine 100 MG Tab PO SCH ×2 (18:00→19:01)
[2016-07-07] MEDS: ALPRAZolam 0.5 MG Tab PO PRN (21:36)
[2016-07-08] MEDS: Sodium Chloride 0.9% 1,000 ML IV SCH (02:09)
[2016-07-08] MEDS: Acetaminophen 325 MG Tab PO PRN (04:14)
[2016-07-08] MEDS: Levothyroxine 100 MCG Tab PO SCH (06:32)
[2016-07-08] MEDS: Levothyroxine 75 MCG Tab PO SCH (06:32)
[2016-07-08] MEDS: Levofloxacin 250 MG Tab PO SCH (06:33)
[2016-07-08] MEDS ORDERED: Omeprazole 20 MG Cap.CR PO SCH (07:00)
[2016-07-08 07:03] LABS: CHLORIDE,CL 104 mmol/L (98-107); SODIUM,NA 143 mmol/L (136-145)
[2016-07-08] MEDS: Metoprolol Succinate 50 MG Tab.ER PO SCH (07:57)
[2016-07-08] MEDS: FLUoxetine 20 MG Cap PO SCH (07:57)
[2016-07-08] MEDS: Hydrochlorothiazide 12.5 MG Cap PO SCH (07:57)
[2016-07-08] MEDS: Acetaminophen/HYDROcodone 325-10 MG Tab PO SCH ×4 (07:58→21:55)
[2016-07-08] MEDS: amLODIPine 10 MG Tab PO SCH (07:58)
[2016-07-08] MEDS: Multivitamins with Iron/Calcium/Folic Acid/Minerals Tab PO SCH (07:59)
[2016-07-08] MEDS: tiZANidine 4 MG Tab PO SCH ×3 (07:59→19:30)
[2016-07-08] MEDS: Pregabalin 25 MG Cap PO SCH ×2 (07:59→19:30)
[2016-07-08] MEDS: Diclofenac Sodium 1% Gel 100 GM Tube TOP SCH ×2 (08:01→19:32)
[2016-07-08] MEDS: Insulin Detemir 100 Units/ML 3 ML Pen SUBCUT SCH (08:03)
--- NOTE | 2016-07-08 08:52 | PCM.PN ---
- General Info Date of Service: 07/08/16 Admission Dx/Problem (Free Text): 55 yo female seen on hospital day 2 for community acquired pneumonia. Patient is still experiencing some hemoptysis but this is not as frequent. Describes the cough as mostly dry and tends to occur when she is up and moving. SOB occurring with activity. None at rest. O2 is 93% on 1 L of oxygen. No fevers since admission. CT scan was completed yesterday and showed infiltrates bilaterally with L > R. Was recommended to repeat CT in 1 month to ensure resolution. Patient is currently taking Levaquin 750 mg. WBC improved from 13.6 to 7.7 today. Creatinine improved and is down to 0.9. Patient does have concerns of uncontrolled back pain. She is rating the pain as a 12/10 and locating is mostly in the lower back. Was unable to sleep last night due to pain. Currently she is getting hydrocodone 10-325 TID, Tylenol 650 mg Q4H prn, and Lyrica 75 mg BID. Patient requesting a change so she can get some rest. Would also like to stop the Omeprazole as it causes diarrhea. No other concerns at this time. Blood sugars have been controlled with the Levemir 8 units. Last BS was 128 this morning and was 123 and 133 last night. Patient is normally on Metformin 500 mg BID outpatient. - Review of Systems General: Denies: Fever HEENT: Denies: post nasal drip, sinus congestion, sore throat, rhinitis Pulmonary: Reports: shortness of breath (activity ), cough, hemoptysis Gastrointestinal: Denies: Abdominal pain Musculoskeletal: Reports: back pain - Patient Data Vitals - most recent: Last Vital Signs Temp 36.9 C 07/08/16 05:57 Pulse 74 07/08/16 07:57 Resp 20 07/08/16 05:57 BP 126/65 07/08/16 07:58 Pulse Ox 93 L 07/08/16 07:18 Weight - most recent: 122.742 kg I&O - last 24 hours: Intake & Output 07/07/16 07/08/16 07/08/16 22:59 06:59 14:59 Intake Total 1861 2205 400 Output Total 700 1500 Balance 1161 705 400 Lab Results last 24 hrs: Laboratory Results - last 24 hr 07/07/16 07/07/16 07/08/16 Range/Units 16:44 20:06 06:32 WBC (4.0-10.0) x10^3/uL RBC (4.00-5.50) x10^6/uL Hgb (12.0-16.0) g/dL Hct (33.0-47.0) % MCV (78.0-93.0) fL MCH (26.0-32.0) pg MCHC (32.0-36.0) g/dL RDW Coeff of Maral (10.0-15.0) % Plt Count (130-400) x10^3/uL Neut % (Auto) (50.0-80.0) % Lymph % (Auto) (25.0-50.0) % [place] % (Auto) (2.0-11.0) % Eos % (Auto) (0.0-4.0) % Baso % (Auto) (0.2-1.2) % Sodium (136-145) mmol/L Potassium (3.5-5.1) mmol/L Chloride (98-107) mmol/L Carbon Dioxide (21-32) mmol/L BUN (7-18) mg/dL Creatinine (0.55-1.02) mg/dL Est Cr Clr Drug Dosing mL/min Estimated GFR (MDRD) Glucose (74-106) mg/dL POC Glucose 123 H 133 H 128 H (74-106) mg/dL Calcium (8.5-10.1) mg/dL 07/08/16 07/08/16 Range/Units 06:42 06:42 WBC 7.7 (4.0-10.0) x10^3/uL RBC 3.65 L (4.00-5.50) x10^6/uL Hgb 11.2 L (12.0-16.0) g/dL Hct 34.6 (33.0-47.0) % MCV 94.8 H (78.0-93.0) fL MCH 30.7 (26.0-32.0) pg MCHC 32.4 (32.0-36.0) g/dL RDW Coeff of Maral 14.7 (10.0-15.0) % Plt Count 297 (130-400) x10^3/uL Neut % (Auto) 57.3 (50.0-80.0) % Lymph % (Auto) 31.9 (25.0-50.0) % [place] % (Auto) 6.5 (2.0-11.0) % Eos % (Auto) 3.8 (0.0-4.0) % Baso % (Auto) 0.5 (0.2-1.2) % Sodium 143 (136-145) mmol/L Potassium 3.8 (3.5-5.1) mmol/L Chloride 104 (98-107) mmol/L Carbon Dioxide 28 (21-32) mmol/L BUN 11 (7-18) mg/dL Creatinine 0.9 (0.55-1.02) mg/dL Est Cr Clr Drug Dosing 66.12 mL/min Estimated GFR (MDRD) > 60 Glucose 140 H (74-106) mg/dL POC Glucose (74-106) mg/dL Calcium 8.5 (8.5-10.1) mg/dL Med Orders - Current: Current Medications Acetaminophen (Tylenol) 650 mg PO Q4H PRN PRN Reason: analgesia/fever Last Admin: 07/08/16 04:14 Dose: 650 mg Hydrocodone Bitart/Acetaminophen ([place] 325-10 Mg) 1 tab PO Q6H [facility] Albuterol (Proventil Neb Soln) 2.5 mg INH Q4HR PRN PRN Reason: Shortness of Breath Alprazolam (Xanax) 0.5 mg PO TID PRN PRN Reason: Anxiety Last Admin: 07/07/16 21:36 Dose: 0.5 mg Amlodipine Besylate (Norvasc) 10 mg PO DAILY [facility] Last Admin: 07/08/16 07:58 Dose: 10 mg Diclofenac Sodium (Voltaren 1% Gel) 0 gm TOP BID [facility] Last Admin: 07/08/16 08:01 Dose: 1 applic Fluoxetine HCl (Prozac) 60 mg PO DAILY [facility] Last Admin: 07/08/16 07:57 Dose: 60 mg Hydrochlorothiazide (Hydrochlorothiazide) 12.5 mg PO DAILY [facility] Last Admin: 07/08/16 07:57 Dose: 12.5 mg Insulin Detemir (Levemir) 8 unit SUBCUT DAILY [facility] Last Admin: 07/08/16 08:03 Dose: 8 units Levofloxacin (Levaquin) 750 mg PO DAILY@0700 [facility] Last Admin: 07/08/16 06:33 Dose: 750 mg Levothyroxine Sodium (Levothyroxine) 75 mcg PO DAILY@0700 [facility] Last Admin: 07/08/16 06:32 Dose: 75 mcg Levothyroxine Sodium (Synthroid) 200 mcg PO DAILY@0700 [facility] Last Admin: 07/08/16 06:32 Dose: 200 mcg Metoprolol Succinate (Toprol Xl) 50 mg PO DAILY [facility] Last Admin: 07/08/16 07:57 Dose: 50 mg Multivitamins/Minerals (Thera M Plus) 1 tab PO DAILY [facility] Last Admin: 07/08/16 07:59 Dose: 1 tab Nitroglycerin (Nitrostat) 0.4 mg SL ASDIRECTED PRN PRN Reason: Chest Pain Pregabalin (Lyrica) 75 mg PO BID [facility] Last Admin: 07/08/16 07:59 Dose: 75 mg Quetiapine Fumarate (Seroquel) 100 mg PO BEDTIME [facility] Last Admin: 07/07/16 19:01 Dose: Not Given Simvastatin (Zocor) 20 mg PO BEDTIME [facility] Tizanidine HCl (Zanaflex) 4 mg PO TID [facility] Last Admin: 07/08/16 07:59 Dose: 4 mg Discontinued Medications Hydrocodone Bitart/Acetaminophen ([place] 325-10 Mg) 1 tab PO TID [facility] Last Admin: 07/08/16 07:58 Dose: 1 tab Sodium Chloride (Normal Saline) 500 mls @ 500 mls/hr IV ONETIME ONE Stop: 07/07/16 13:06 Last Admin: 07/07/16 13:17 Dose: 500 mls/hr Sodium Chloride (Normal Saline) 1,000 mls @ 125 mls/hr IV ASDIRECTED [facility] Last Admin: 07/08/16 02:09 Dose: 125 mls/hr Sodium Chloride (Normal Saline) 100 mls @ 2 mls/sec IV ONETIME ONE Stop: 07/07/16 12:34 Last Admin: 07/07/16 13:14 Dose: 2 mls/sec Iopamidol (Isovue-300 (61%)) 100 ml IVPUSH ONETIME ONE Stop: 07/07/16 12:34 Last Admin: 07/07/16 13:14 Dose: 100 ml Levofloxacin (Levaquin) 750 mg PO Q24H [facility] Last Admin: 07/07/16 12:55 Dose: Not Given Omeprazole (Omeprazole) 40 mg PO DAILY@0700 [facility] Last Admin: 07/08/16 06:33 Dose: 40 mg - Exam Quality Assessment: supplemental oxygen (1 L) General: alert, oriented, cooperative Lungs: Normal respiratory effort, Decreased breath sounds (generalized ), Rhonchi (lower lung oneal bilaterally ). No: Crackles, Rales, Wheezing Cardiovascular: Regular Rate, Regular Rhythm, No Murmurs Extremities: no edema Skin: warm, dry Psy/Mental Status: alert, normal affect, normal mood - Problem List Review Problem List Initiated/Reviewed/Updated: Yes - My Orders Last 24 Hours: My Active Orders 07/07/16 10:29 Admission Status [Patient Status] [ADT] Routine 07/07/16 12:08 ALPRAZolam [Xanax] 0.5 mg PO TID PRN Albuterol [Proventil Neb Soln] 2.5 mg INH Q4HR PRN Nitroglycerin [Nitrostat] 0.4 mg SL ASDIRECTED PRN 07/07/16 12:12 Patient Status [ADT] Routine Intake and Output [RC] 06,18 Oxygen Therapy [RC] 08,20 Up ad Ana [RC] 08,20 Vital Signs [RC] 02,06,10,14,18,22 Acetaminophen [Tylenol] 650 mg PO Q4H PRN Code Status [Resuscitation Status] Routine 07/07/16 12:20 Chest w Cont [CT] Routine 07/07/16 12:21 Accu Check [Blood Glucose Check, Bedside] [RC] 07,11,17,20 07/07/16 12:45 Levofloxacin [Levaquin] 750 mg PO DAILY@0700 07/07/16 20:00 Diclofenac Sodium [Voltaren 1% Gel] 0 gm TOP BID Pregabalin [Lyrica] 75 mg PO BID QUEtiapine [SEROquel] 100 mg PO BEDTIME tiZANidine [Zanaflex] 4 mg PO TID 07/07/16 Lunch Regular Diet [DIET] 07/08/16 07:00 Levothyroxine 75 mcg PO DAILY@0700 Levothyroxine [Synthroid] 200 mcg PO DAILY@0700 07/08/16 08:00 FLUoxetine [PROzac] 60 mg PO DAILY Hydrochlorothiazide 12.5 mg PO DAILY Insulin Detemir [Levemir] 8 unit SUBCUT DAILY Metoprolol Succinate [Toprol XL] 50 mg PO DAILY Multivitamins w-Iron/Ca/FA/Min [Thera M Plus] 1 tab PO DAILY amLODIPine [Norvasc] 10 mg PO DAILY 07/08/16 08:45 Acetaminophen/HYDROcodone [[place] 325-10 MG] 1 tab PO Q6H 07/08/16 20:00 Simvastatin [Zocor] 20 mg PO BEDTIME - Plan Plan:: Community acquired pneumonia Hemoptysis HTN DM II Hx tobacco use Chronic back pain Fibromyalgia 1. Stop IV fluids 2. Continue Levaquin 750 mg once daily for [address] with contrast showed bilateral infiltrates. Recommended repeat in 1 month. 4. Recheck lab work in the morning 5. Continue O2 supplement as needed to keep O2 above 92% 6. Continue the Levemir 8 units 7. QID accuchecks 8. Full code
[2016-07-08] MEDS: Nystatin Susp 100,000 Unit/ML 5 ML UD Cup PO SCH ×3 (13:18→19:30)
[2016-07-08] MEDS: Simvastatin 20 MG Tab PO SCH (19:30)
[2016-07-08] MEDS: QUEtiapine 100 MG Tab PO SCH (19:31)
[2016-07-09] MEDS: Acetaminophen/HYDROcodone 325-10 MG Tab PO SCH ×4 (02:34→21:34)
[2016-07-09] MEDS: Levothyroxine 75 MCG Tab PO SCH (06:05)
[2016-07-09] MEDS: Levothyroxine 100 MCG Tab PO SCH (06:05)
[2016-07-09] MEDS: Levofloxacin 250 MG Tab PO SCH (06:05)
[2016-07-09 07:15] LABS: CHLORIDE,CL 105 mmol/L (98-107); SODIUM,NA 142 mmol/L (136-145)
[2016-07-09] MEDS: Pregabalin 25 MG Cap PO SCH ×2 (08:07→21:33)
[2016-07-09] MEDS: amLODIPine 10 MG Tab PO SCH (08:07)
[2016-07-09] MEDS: FLUoxetine 20 MG Cap PO SCH (08:07)
[2016-07-09] MEDS: Multivitamins with Iron/Calcium/Folic Acid/Minerals Tab PO SCH (08:08)
[2016-07-09] MEDS: tiZANidine 4 MG Tab PO SCH ×3 (08:08→21:36)
[2016-07-09] MEDS: Metoprolol Succinate 50 MG Tab.ER PO SCH (08:08)
[2016-07-09] MEDS: Nystatin Susp 100,000 Unit/ML 5 ML UD Cup PO SCH (08:08)
[2016-07-09] MEDS: Hydrochlorothiazide 12.5 MG Cap PO SCH (08:08)
[2016-07-09] MEDS: Insulin Detemir 100 Units/ML 3 ML Pen SUBCUT SCH (08:11)
--- NOTE | 2016-07-09 08:51 | PCM.PN ---
- General Info Date of Service: 07/09/16 Admission Dx/Problem (Free Text): 55 yo female seen on hospital day 3 for community acquired pneumonia. Patient states that she is feeling better but not quite good enough to go home. She continues to cough. Describes this as mostly dry but occasionally productive. No hemoptysis since yesterday. No fevers or chills. Does continue to have some SOB with activity and lying flat. No congestion or rhinorrhea. She has been treated with Levaquin 750 mg daily and this will continue for 5 days. Blood sugars have been controlled with 8 units of Levemir. Blood sugar was 111 this morning. She is treated with 500 mg Metformin twice daily outpatient. Yesterday she was started on a Nystatin swish and swallow. Patient no longer wants to take this. Feels this has improved. No oral pain. Back pain continues to be uncontrolled. She is taking 75 mg lyrica BID, hydrocodone 10- 325 mg Q6H, and Tylenol 650 mg Q4H prn. She is willing to try going up on the Lyrica. No other concerns at this time. - Review of Systems General: Denies: Fever HEENT: Reports: other (No oral pain) Pulmonary: Reports: shortness of breath (activity ), cough. Denies: hemoptysis Gastrointestinal: Denies: Abdominal pain, Constipation, Diarrhea Musculoskeletal: Reports: neck pain, back pain - Patient Data Vitals - most recent: Last Vital Signs Temp 37.1 C 07/09/16 06:00 Pulse 73 07/09/16 08:08 Resp 18 07/09/16 06:00 BP 123/70 07/09/16 08:08 Pulse Ox 92 L 07/09/16 08:00 Weight - most recent: 122.742 kg I&O - last 24 hours: Intake & Output 07/08/16 07/09/16 07/09/16 22:59 06:59 14:59 Intake Total 120 1800 Output Total 500 2350 Balance -380 -550 Lab Results last 24 hrs: Laboratory Results - last 24 hr 07/08/16 07/08/16 07/08/16 Range/Units 11:06 16:45 19:28 WBC (4.0-10.0) x10^3/uL RBC (4.00-5.50) x10^6/uL Hgb (12.0-16.0) g/dL Hct (33.0-47.0) % MCV (78.0-93.0) fL MCH (26.0-32.0) pg MCHC (32.0-36.0) g/dL RDW Coeff of Maral (10.0-15.0) % Plt Count (130-400) x10^3/uL Neut % (Auto) (50.0-80.0) % Lymph % (Auto) (25.0-50.0) % [place] % (Auto) (2.0-11.0) % Eos % (Auto) (0.0-4.0) % Baso % (Auto) (0.2-1.2) % Sodium (136-145) mmol/L Potassium (3.5-5.1) mmol/L Chloride (98-107) mmol/L Carbon Dioxide (21-32) mmol/L BUN (7-18) mg/dL Creatinine (0.55-1.02) mg/dL Est Cr Clr Drug Dosing mL/min Estimated GFR (MDRD) Glucose (74-106) mg/dL POC Glucose 136 H 112 H 125 H (74-106) mg/dL Calcium (8.5-10.1) mg/dL 07/09/16 07/09/16 07/09/16 Range/Units 06:09 06:25 06:25 WBC 6.5 (4.0-10.0) x10^3/uL RBC 3.72 L (4.00-5.50) x10^6/uL Hgb 11.4 L (12.0-16.0) g/dL Hct 35.1 (33.0-47.0) % MCV 94.4 H (78.0-93.0) fL MCH 30.6 (26.0-32.0) pg MCHC 32.5 (32.0-36.0) g/dL RDW Coeff of Maral 14.9 (10.0-15.0) % Plt Count 294 (130-400) x10^3/uL Neut % (Auto) 49.1 L (50.0-80.0) % Lymph % (Auto) 36.9 (25.0-50.0) % [place] % (Auto) 10.0 (2.0-11.0) % Eos % (Auto) 3.5 (0.0-4.0) % Baso % (Auto) 0.5 (0.2-1.2) % Sodium 142 (136-145) mmol/L Potassium 3.5 (3.5-5.1) mmol/L Chloride 105 (98-107) mmol/L Carbon Dioxide 27 (21-32) mmol/L BUN 6 L (7-18) mg/dL Creatinine 0.8 (0.55-1.02) mg/dL Est Cr Clr Drug Dosing 74.38 mL/min Estimated GFR (MDRD) > 60 Glucose 121 H (74-106) mg/dL POC Glucose 111 H (74-106) mg/dL Calcium 8.6 (8.5-10.1) mg/dL Med Orders - Current: Current Medications Acetaminophen (Tylenol) 650 mg PO Q4H PRN PRN Reason: analgesia/fever Last Admin: 07/08/16 04:14 Dose: 650 mg Hydrocodone Bitart/Acetaminophen ([place] 325-10 Mg) 1 tab PO Q6H [facility] Last Admin: 07/09/16 02:34 Dose: 1 tab Albuterol (Proventil Neb Soln) 2.5 mg INH Q4HR PRN PRN Reason: Shortness of Breath Alprazolam (Xanax) 0.5 mg PO TID PRN PRN Reason: Anxiety Last Admin: 07/07/16 21:36 Dose: 0.5 mg Amlodipine Besylate (Norvasc) 10 mg PO DAILY [facility] Last Admin: 07/09/16 08:07 Dose: 10 mg Diclofenac Sodium (Voltaren 1% Gel) 0 gm TOP BID [facility] Last Admin: 07/08/16 19:32 Dose: 1 applic Fluoxetine HCl (Prozac) 60 mg PO DAILY [facility] Last Admin: 07/09/16 08:07 Dose: 60 mg Hydrochlorothiazide (Hydrochlorothiazide) 12.5 mg PO DAILY [facility] Last Admin: 07/09/16 08:08 Dose: 12.5 mg Insulin Detemir (Levemir) 8 unit SUBCUT DAILY [facility] Last Admin: 07/09/16 08:11 Dose: 8 units Levofloxacin (Levaquin) 750 mg PO DAILY@0700 [facility] Last Admin: 04/21/17 06:05 Dose: 750 mg Levothyroxine Sodium (Levothyroxine) 75 mcg PO DAILY@0700 [facility] Last Admin: 07/09/16 06:05 Dose: 75 mcg Levothyroxine Sodium (Synthroid) 200 mcg PO DAILY@0700 [facility] Last Admin: 07/09/16 06:05 Dose: 200 mcg Metoprolol Succinate (Toprol Xl) 50 mg PO DAILY [facility] Last Admin: 07/09/16 08:08 Dose: 50 mg Multivitamins/Minerals (Thera M Plus) 1 tab PO DAILY [facility] Last Admin: 07/09/16 08:08 Dose: 1 tab Nitroglycerin (Nitrostat) 0.4 mg SL ASDIRECTED PRN PRN Reason: Chest Pain Nystatin (Mycostatin) 5 ml PO QID [facility] Last Admin: 07/09/16 08:08 Dose: 5 ml Pregabalin (Lyrica) 150 mg PO BID [facility] Quetiapine Fumarate (Seroquel) 100 mg PO BEDTIME [facility] Last Admin: 07/08/16 19:31 Dose: 100 mg Simvastatin (Zocor) 20 mg PO BEDTIME [facility] Last Admin: 07/08/16 19:30 Dose: 20 mg Tizanidine HCl (Zanaflex) 4 mg PO TID [facility] Last Admin: 07/09/16 08:08 Dose: 4 mg Discontinued Medications Hydrocodone Bitart/Acetaminophen ([place] 325-10 Mg) 1 tab PO TID [facility] Last Admin: 07/08/16 07:58 Dose: 1 tab Sodium Chloride (Normal Saline) 500 mls @ 500 mls/hr IV ONETIME ONE Stop: 07/07/16 13:06 Last Admin: 07/07/16 13:17 Dose: 500 mls/hr Sodium Chloride (Normal Saline) 1,000 mls @ 125 mls/hr IV ASDIRECTED [facility] Last Admin: 07/08/16 02:09 Dose: 125 mls/hr Sodium Chloride (Normal Saline) 100 mls @ 2 mls/sec IV ONETIME ONE Stop: 07/07/16 12:34 Last Admin: 07/07/16 13:14 Dose: 2 mls/sec Iopamidol (Isovue-300 (61%)) 100 ml IVPUSH ONETIME ONE Stop: 07/07/16 12:34 Last Admin: 07/07/16 13:14 Dose: 100 ml Levofloxacin (Levaquin) 750 mg PO Q24H [facility] Last Admin: 07/07/16 12:55 Dose: Not Given Omeprazole (Omeprazole) 40 mg PO DAILY@0700 [facility] Last Admin: 07/08/16 06:33 Dose: 40 mg Pregabalin (Lyrica) 75 mg PO BID [facility] Last Admin: 07/09/16 08:07 Dose: 75 mg - Exam Quality Assessment: No: supplemental oxygen General: alert, oriented HEENT: Mucous membr. moist/pink, Other (three small white patches along inside of upper lip. No mucosal irritation. ) Lungs: Clear to auscultation, Normal respiratory effort. No: Crackles, Rales, Rhonchi, Wheezing Cardiovascular: Regular Rate, Regular Rhythm, No Murmurs Extremities: no edema Skin: warm, dry Psy/Mental Status: alert, normal affect, normal mood - Problem List Review Problem List Initiated/Reviewed/Updated: Yes - My Orders Last 24 Hours: My Active Orders 07/08/16 08:00 FLUoxetine [PROzac] 60 mg PO DAILY Hydrochlorothiazide 12.5 mg PO DAILY Insulin Detemir [Levemir] 8 unit SUBCUT DAILY Metoprolol Succinate [Toprol XL] 50 mg PO DAILY Multivitamins w-Iron/Ca/FA/Min [Thera M Plus] 1 tab PO DAILY amLODIPine [Norvasc] 10 mg PO DAILY 07/08/16 09:00 Acetaminophen/HYDROcodone [[place] 325-10 MG] 1 tab PO Q6H 07/08/16 13:15 Nystatin [Mycostatin] 5 ml PO QID 07/08/16 20:00 Simvastatin [Zocor] 20 mg PO BEDTIME 07/09/16 08:44 Pregabalin [Lyrica] 150 mg PO BID 07/10/16 05:11 BMP [BASIC METABOLIC PANEL,BMP] [CHEM] Routine CBC WITH AUTO DIFF [HEME] Routine - Plan Plan:: Community acquired pneumonia Hemoptysis HTN DM II Hx tobacco use Chronic back pain Fibromyalgia Thrush 1. Increase Lyrica to 150 mg twice daily 2. Continue Levaquin 750 mg once daily for [address] with contrast showed bilateral infiltrates. Recommended repeat in 1 month. 4. Recheck lab work in the morning 5. Continue O2 supplement as needed to keep O2 above 92% 6. Continue the Levemir 8 units 7. QID accuchecks 8. Full code 9. Patient to be up and walking today 10. Discontinue Nystatin due to patient refusal. Consider restarting if symptoms return. 11. Anticipate discharge tomorrow
[2016-07-09] MEDS: ALPRAZolam 0.5 MG Tab PO PRN ×2 (08:59→17:21)
[2016-07-09] MEDS ORDERED: Pregabalin 25 MG Cap PO ONE (09:00)
[2016-07-09] MEDS: Diclofenac Sodium 1% Gel 100 GM Tube TOP SCH ×2 (11:05→21:37)
[2016-07-09] MEDS: Acetaminophen 325 MG Tab PO PRN (17:21)
[2016-07-09] MEDS ORDERED: Sodium Chloride 0.9% 10 ML Syringe IV PRN (19:14)
[2016-07-09] MEDS: Simvastatin 20 MG Tab PO SCH (21:33)
[2016-07-09] MEDS: QUEtiapine 100 MG Tab PO SCH (21:34)
[2016-07-10] MEDS: Acetaminophen/HYDROcodone 325-10 MG Tab PO SCH ×2 (03:29→08:51)
[2016-07-10] MEDS: Levofloxacin 250 MG Tab PO SCH (06:32)
[2016-07-10] MEDS: Levothyroxine 100 MCG Tab PO SCH (06:32)
[2016-07-10] MEDS: Levothyroxine 75 MCG Tab PO SCH (06:33)
[2016-07-10] MEDS: Insulin Detemir 100 Units/ML 3 ML Pen SUBCUT SCH (07:57)
[2016-07-10] MEDS: FLUoxetine 20 MG Cap PO SCH (07:58)
[2016-07-10] MEDS: amLODIPine 10 MG Tab PO SCH (07:58)
[2016-07-10] MEDS: Multivitamins with Iron/Calcium/Folic Acid/Minerals Tab PO SCH (07:58)
[2016-07-10] MEDS: Metoprolol Succinate 50 MG Tab.ER PO SCH (07:59)
[2016-07-10] MEDS: tiZANidine 4 MG Tab PO SCH ×2 (08:00→11:51)
[2016-07-10] MEDS: Pregabalin 25 MG Cap PO SCH (08:00)
[2016-07-10] MEDS: Hydrochlorothiazide 12.5 MG Cap PO SCH (08:00)
[2016-07-10] MEDS: Diclofenac Sodium 1% Gel 100 GM Tube TOP SCH (08:03)
[2016-07-10 08:32] LABS: CHLORIDE,CL 105 mmol/L (98-107); SODIUM,NA 141 mmol/L (136-145)
[2016-07-10] MEDS: ALPRAZolam 0.5 MG Tab PO PRN (09:38)
[2016-07-10] MEDS ORDERED: Potassium Chloride 20 MEQ Tab.ER PO SCH (10:00)
[2016-07-10 10:25] VITALS: BP 99/58
--- NOTE | 2016-07-11 00:52 | DISCH ---
PRIMARY DISCHARGE DIAGNOSIS: Bilateral community acquired pneumonia with hemoptysis. SECONDARY DISCHARGE DIAGNOSES: 1. Type 2 diabetes, controlled, not on long-term insulin use. 2. History of tobacco use, but quit like 4 years ago. No diagnosis of COPD or asthma. 3. Chronic back pain. 4. Fibromyalgia. 5. Essential hypertension. REASON FOR ADMISSION: On the date of admission, this 55-year-old who had just recently been admitted for pneumonia back on June 23, and treated with Rocephin and azithromycin, had returned to the clinic with recurrent symptoms. Due to her hemoptysis, she ended up having a CT, which did show bilateral pneumonia. She was short of breath. She did require some oxygen, but was able to be weaned off. She did have an elevated white count, which was 13.6. Otherwise, she also had low blood pressure 80/58 in the clinic, required some IV fluids. Her home blood pressure medications were held appropriately along with metformin due to her CT scan, but creatinine was normal and discharged, so she was given the okay to restart her metformin; however, she liked using the insulin pen and plans to use 8 units daily until she runs out and then go back to her metformin as discussed with her. At the time of discharge, the patient was stable with temp 97.6, pulse 59, blood pressure 99/58, respiratory rate 71, and O2 92 on room air. General: She is in no acute distress. HEART: Regular rate and rhythm. S1 and S2 without murmur. LUNGS: Sounds are clear to auscultation bilaterally without crackles or wheezes. EXTREMITIES: Warm and dry. No edema. MENTAL STATUS: She is alert and orientated x3. DISCHARGE LABS: Include a white count 6.2, hemoglobin 11.7, sodium 141, potassium 3.3, chloride 105, bicarb 28, BUN 10, creatinine 0.9, glucose 122, and calcium 8.6. DISCHARGE PLANS AND INSTRUCTIONS: She is given 1 dose of potassium prior to discharge. She will have hydrochlorothiazide on hold for the next 2 days and may resume Tuesday unless feeling lightheaded or dizzy. She will be on Levaquin 750 mg daily for 3 more days. Discussed if she has any tendonitis or heel pain, she should stop it. Lyrica was also increased by Mey Ramsey on 07/09, and I did issue a new prescription for that as well. She will follow up Mey Ramsey in 1 to 2 weeks time. She will have a followup CT scan for the bilateral pneumonia in 1 month. No blood cultures or sputum cultures were recorded during this stay. MKA: 07/10/2016 10:58:01 MODL: 07/11/2016 00:45:34 /[id number]
== END 2016-07-10 11:15 | disposition home or self-care (01) | DRG 194 ==
LOC: VM.MS 10:29
PROVIDERS: ADMIT Physician Assistant; ATTEND Physician Assistant
DX: J18.9 Pneumonia, unspecified organism (principal); R04.2 Hemoptysis; I11.0 Hypertensive heart disease with heart failure; I50.9 Heart failure, unspecified; E78.00 Pure hypercholesterolemia, unspecified; J45.909 Unspecified asthma, uncomplicated; K21.9 Gastro-esophageal reflux disease without esophagitis; R32 Unspecified urinary incontinence; M19.90 Unspecified osteoarthritis, unspecified site; E11.40 Type 2 diabetes mellitus with diabetic neuropathy, unspecified; Z79.84 Long term (current) use of oral hypoglycemic drugs; F32.9 Major depressive disorder, single episode, unspecified; F41.9 Anxiety disorder, unspecified; Z79.899 Other long term (current) drug therapy; Z88.8 Allergy status to other drugs, medicaments and biological substances; Z87.891 Personal history of nicotine dependence; Z96.659 Presence of unspecified artificial knee joint; M79.7 Fibromyalgia; G89.29 Other chronic pain; B37.9 Candidiasis, unspecified
CPT/HCPCS: 36415; 71260; 80048; 82962; 85025; 94760; A9270-GY; J1815-GY; J7030; J7040; J7050; Q9967

== ENCOUNTER 2018-06-18 11:38 | Emergency (ER) | payer MEDICARE ==
[2018-06-18 11:53] VITALS: BP 161/90
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
--- NOTE | 2018-06-18 12:25 | CR ---
[id number] RAD/RAD Foot Left 3V Min Exam: RAD Foot Left 3V Min Indication:BLUNT INJURY LATERAL FOOT. Comparison: None Discussion: No significant osseous or soft tissue abnormality. Impression: Negative examination of the foot. Nico Cowart MD 06/18/18 [id number] Thank you for allowing us to participate in the care of your patient.
== END 2018-06-18 12:32 | disposition home or self-care (01) ==
LOC: SUPCPDRO 11:38 → VM.ED 11:38
DX: S90.32XA Contusion of left foot, initial encounter (principal); I11.0 Hypertensive heart disease with heart failure; I50.9 Heart failure, unspecified; E78.00 Pure hypercholesterolemia, unspecified; J45.909 Unspecified asthma, uncomplicated; E11.40 Type 2 diabetes mellitus with diabetic neuropathy, unspecified; Z88.8 Allergy status to other drugs, medicaments and biological substances; Z88.5 Allergy status to narcotic agent; Z79.899 Other long term (current) drug therapy; Z79.82 Long term (current) use of aspirin; W22.8XXA Striking against or struck by other objects, initial encounter; Z79.84 Long term (current) use of oral hypoglycemic drugs
CPT/HCPCS: 73630-LT; 99283-25; 99283-GF

== ENCOUNTER 2018-07-12 16:48 | Emergency (ER) | payer MEDICARE ==
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
[2018-07-12] MEDS ORDERED: Sodium Chloride 0.9% 10 ML Syringe FLUSH PRN (17:19)
[2018-07-12] MEDS: diazePAM 5 MG/ML MDV IVPUSH ONE (17:25)
[2018-07-12] MEDS: oxyCODONE 5 MG Tab PO ONE (17:55)
[2018-07-12 18:33] VITALS: BP 154/75
== END 2018-07-12 18:20 | disposition home or self-care (01) ==
LOC: VM.ED 16:48
DX: M54.5 Low back pain (principal); R10.9 Unspecified abdominal pain; I11.0 Hypertensive heart disease with heart failure; I50.9 Heart failure, unspecified; E11.40 Type 2 diabetes mellitus with diabetic neuropathy, unspecified; Z88.8 Allergy status to other drugs, medicaments and biological substances; Z79.899 Other long term (current) drug therapy
CPT/HCPCS: 96374; 99283-25; A9270-GY; J3360

== ENCOUNTER 2020-08-08 10:06 | Inpatient (IN) | payer MEDICARE ==
[2020-08-08] MEDS ORDERED: oxyCODONE 5 MG Tab PO ONE ×2 (13:15→16:37)
[2020-08-08] MEDS ORDERED: Naloxone 0.4 MG/ML SDV SUBCUT PRN (16:37)
[2020-08-08] MEDS ORDERED: Nitroglycerin 0.4 MG Tab.SL SL PRN (16:37)
[2020-08-08] MEDS ORDERED: Albuterol HFA 18 Gm Inhaler INH PRN (16:37)
[2020-08-08] MEDS: hydrOXYzine HCl 25 MG Tab PO PRN (17:57)
[2020-08-08] MEDS: metFORMIN 500 MG Tab PO SCH (17:57)
[2020-08-08] MEDS: traMADol 50 MG Tab PO PRN (17:57)
--- NOTE | 2020-08-08 18:54 | HP ---
CHIEF COMPLAINT: Vertigo and left shoulder pain. HISTORY OF PRESENT ILLNESS: This is a 59-year-old female who had actually had a left shoulder replacement on 07/23/[address] Yoon arthroplasty, had vertigo and severe left shoulder pain but no known fall, therefore presented to the ER. An MRI did not show any acute findings, but her shoulder did show her to have a fracture crossing the proximal humerus at the level of the greater tuberosity. The patient was admitted. She was getting IV Dilaudid for pain control. Her last dose was this morning, but it does not look like she had been getting it every day. She has a longstanding history of chronic back pain and knee pain and fibromyalgia syndrome and does follow with the [facility] and has been on ketamine. She also was felt to possibly have a UTI and completed the IV Rocephin while in [place] and has a history of Meniere disease. She was having double and triple vision, but states it has improved down to just 1-1/2 now, but she is too unsteady to safely ambulate. She has not been able to get up and move with a walker because she is nonweightbearing for that left shoulder. She otherwise chronically does use tramadol and oxycodone for pain. Her Seroquel dose was decreased at bedtime. Her Horizant was discontinued and her fluoxetine was decreased to 20 mg, as it was felt the dizziness may have been from medications. The patient is having bowel movements. She had one this morning. She is very polite, cooperative when she arrived. Her daughter is actually the one who asked for a pain pill because they have not had one since leaving [place] and the patient did have her lunch there, but had not eaten yet. It should be noted then later in the day like right at 5, the patient was upset. She was only getting oxycodone and demanded that I either call her or come see her because it sounds like she actually did want some Dilaudid. I instructed the nurse that since she was waiting for her ketamine to come from home should have a family member bring that in so that she could start using it sooner than waiting till Tuesday. ALLERGIES: The patient's allergies include fluticasone, lisinopril, duloxetine caused hallucinations, gabapentin at higher doses caused disorientation, milnacipran caused short-term memory problems, oxymorphone and pregabalin or Lyrica caused hallucinations. MEDICATION LIST: As it stands currently is reviewed and does show her to have Toprol 50 mg twice daily; Claritin 10 mg for five days; Tylenol 650 three times a day for five days; oxycodone 10 mg every six hours as needed for pain; tramadol 50 mg every six hours as needed for pain; Senokot two tabs twice daily; Prozac 20 mg daily; Seroquel 150 at bedtime; immediate release oxycodone 10 mg t.i.d.; Tylenol as needed; Narcan as needed; Prilosec 20 mg daily; Voltaren gel; Lipitor 40 mg daily; metformin 500 twice a day; nitroglycerin as needed; Atarax one tablet four times a day as needed for anxiety; levothyroxine 175 daily; Flovent, Anoro, and Ventolin inhalers; magnesium 400 daily; and vitamin D 2000 daily. It should be noted her last refill for hydromorphone or Dilaudid was from [facility], and had hydrocodone on 07/24 and oxycodone also on 07/24 and tramadol also on 07/24; and oxycodone from [facility] on 07/21 and ketamine powder on 07/17. Phentermine, the patient had been taking but was supposed to be off it for surgery. PAST MEDICAL HISTORY: Includes osteoporosis with pathologic fracture in 2017 of T9, anxiety, essential hypertension, fibromyalgia, history of carpal tunnel, lumbar radiculopathy, depression, asthma, morbid obesity, osteoarthritis, hyperlipidemia, restless legs syndrome, type 2 diabetes, vitamin D deficiency, vertigo. PAST SURGICAL HISTORY: The patient has had an upper endoscopy; left knee revision; dental extractions; spinal cord stimulator in [place] in 2018; shoulder arthroplasty on the right in 2019, the left in 2020; neck surgery; laminectomy; hysterectomy; excision of ganglion cyst; cholecystectomy; carpal tunnel surgery; breast biopsies; back surgery; appendectomy. FAMILY HISTORY: Her father of brain cancer. He had depression, hypertension, and substance abuse. SOCIAL HISTORY: The patient is . She is disabled. She has two children. She lives near [place]. She is a nonsmoker, nondrinker. REVIEW OF SYSTEMS: General: No weight changes. No fever. No chills. HEENT: No trouble swallowing. Cardiac: No chest pain. No palpitations. Respiratory: No cough. No shortness of breath. Abdominal: No nausea, vomiting, or diarrhea. Musculoskeletal: She has left shoulder pain. It is severe. Cognitive: She denies any memory problems. PHYSICAL EXAMINATION: Vital Signs: Weight 102.9 kg. General: She is in no acute distress. Heart: Regular rate and rhythm. S1, S2 without murmur. Lungs: Lung sounds are clear to auscultation bilaterally without crackles or wheezes. Abdomen: Positive bowel sounds. Soft, nondistended, nontender. Extremities: Left arm is in a sling. She has a good radial pulse. Her shoulder has no bruising or swelling. Her incision is well healed, but she is quite exquisitely tender when I touch her posteriorly in that shoulder. Her calves are nontender. No edema Mental Status: She is alert. She is oriented x3 Psychiatric: She is polite. She is cooperative. She was not even asking for pain medications. LABORATORY DATA: Her lab work from today shows the patient had a glucose this morning of 115. She states she was off her metformin there and did quite well, only needed insulin once. She had COVID test that was negative. Her B12 yesterday was 1800. Her hemoglobin was 9.8, but it was improved; white count 11.1; platelets 532. Her glucose 112 yesterday on the panel, kidney function and potassium all normal. ASSESSMENT AND PLAN: 1. Left shoulder replacement with fracture, patient denies an injury. 2. Vertigo, possibly related to her history of Meniere. 3. Chronic pain and fibromyalgia. 4. Diabetes, controlled. 5. Essential hypertension. 6. Morbid obesity. 7. Asthma, stable without exacerbation. 8. Anxiety and depression. 9. Restless legs. The patient will continue on current pain control as discussed with her from [place]. The oxycodone is what was ordered. The oral Dilaudid was actually ordered prior to her recent admission. For now, we are holding the Horizant, but would restart it if needed. It is held due to her polypharmacy and concern for that causing vertigo. We will do q.i.d. Accu-Cheks and over the weekend if blood sugars are doing well, we will discontinue the frequency of that. We will get her up and working with PT, but she is nonweightbearing to that left arm. She has a followup with Ortho already scheduled. We will also get [facility] involved for further assistance as well. She is a code level 1, admitted for further therapy after a left shoulder fracture. MKA: 08/08/2020 17:27:35 MODL: 08/08/2020 18:48:13 /[id number]
[2020-08-08] MEDS: Acetaminophen 325 MG Tab PO SCH (21:06)
[2020-08-08] MEDS: QUEtiapine 100 MG Tab PO SCH (21:06)
[2020-08-08] MEDS: Metoprolol Succinate 50 MG Tab.ER PO SCH (21:07)
[2020-08-08] MEDS: atorvaSTATin 40 MG Tab PO SCH (21:08)
[2020-08-08] MEDS: oxyCODONE 5 MG Tab PO SCH (21:09)
[2020-08-08] MEDS: Budesonide 0.5 MG/2 ML Neb Susp INH SCH (21:10)
[2020-08-08] MEDS: Diclofenac Sodium 1% Gel 100 GM Tube TOP SCH (22:05)
[2020-08-08] MEDS: oxyCODONE 5 MG Tab PO PRN (23:35)
[2020-08-09] MEDS: Acetaminophen 325 MG Tab PO PRN ×2 (05:29→19:10)
[2020-08-09] MEDS: oxyCODONE 5 MG Tab PO PRN ×3 (05:31→19:09)
[2020-08-09] MEDS: Acetaminophen 325 MG Tab PO SCH ×3 (08:05→22:36)
[2020-08-09] MEDS: oxyCODONE 5 MG Tab PO SCH ×3 (08:06→22:37)
[2020-08-09] MEDS: Cholecalciferol (Vitamin D3) 25 MCG Tab PO SCH (08:06)
[2020-08-09] MEDS: Omeprazole 20 MG Cap.CR PO SCH (08:07)
[2020-08-09] MEDS: Aspirin 325 MG Tab.EC PO SCH (08:07)
[2020-08-09] MEDS: Metoprolol Succinate 50 MG Tab.ER PO SCH ×2 (08:07→20:36)
[2020-08-09] MEDS: Magnesium Oxide 400 MG Tab PO SCH (08:07)
[2020-08-09] MEDS: FLUoxetine 20 MG Cap PO SCH (08:07)
[2020-08-09] MEDS: metFORMIN 500 MG Tab PO SCH ×2 (08:07→18:13)
[2020-08-09] MEDS: Loratadine 10 MG Tab PO SCH (08:07)
[2020-08-09] MEDS: Diclofenac Sodium 1% Gel 100 GM Tube TOP SCH ×4 (08:10→21:12)
[2020-08-09] MEDS: hydrOXYzine HCl 25 MG Tab PO PRN ×2 (10:47→20:37)
[2020-08-09] MEDS: traMADol 50 MG Tab PO PRN ×3 (10:47→20:41)
[2020-08-09] MEDS: Tiotropium Bromide 4 GM Inhalation Spray (2.5mcg/1 dose; 10 doses) INH SCH (11:52)
[2020-08-09] MEDS: Budesonide 0.5 MG/2 ML Neb Susp INH SCH ×2 (11:52→21:12)
[2020-08-09] MEDS: QUEtiapine 100 MG Tab PO SCH (20:36)
[2020-08-09] MEDS: atorvaSTATin 40 MG Tab PO SCH (20:37)
[2020-08-10] MEDS: oxyCODONE 5 MG Tab PO PRN ×3 (02:02→18:41)
[2020-08-10] MEDS: Acetaminophen 325 MG Tab PO PRN ×2 (05:38→18:43)
[2020-08-10] MEDS: traMADol 50 MG Tab PO PRN (05:39)
[2020-08-10] MEDS: hydrOXYzine HCl 25 MG Tab PO PRN ×2 (05:40→11:37)
[2020-08-10] MEDS: oxyCODONE 5 MG Tab PO SCH ×3 (06:29→22:26)
[2020-08-10] MEDS: FLUoxetine 20 MG Cap PO SCH (08:58)
[2020-08-10] MEDS: metFORMIN 500 MG Tab PO SCH ×2 (08:58→18:40)
[2020-08-10] MEDS: Cholecalciferol (Vitamin D3) 25 MCG Tab PO SCH (08:59)
[2020-08-10] MEDS: Magnesium Oxide 400 MG Tab PO SCH (08:59)
[2020-08-10] MEDS: Metoprolol Succinate 50 MG Tab.ER PO SCH ×2 (08:59→19:51)
[2020-08-10] MEDS: Omeprazole 20 MG Cap.CR PO SCH (08:59)
[2020-08-10] MEDS: Aspirin 325 MG Tab.EC PO SCH (08:59)
[2020-08-10] MEDS: Loratadine 10 MG Tab PO SCH (08:59)
[2020-08-10] MEDS: Tiotropium Bromide 4 GM Inhalation Spray (2.5mcg/1 dose; 10 doses) INH SCH (09:00)
[2020-08-10] MEDS: Budesonide 0.5 MG/2 ML Neb Susp INH SCH ×2 (09:00→21:03)
[2020-08-10] MEDS: Diclofenac Sodium 1% Gel 100 GM Tube TOP SCH ×4 (09:00→21:06)
[2020-08-10] MEDS: Acetaminophen 325 MG Tab PO SCH ×3 (10:48→22:27)
[2020-08-10] MEDS: atorvaSTATin 40 MG Tab PO SCH (21:00)
[2020-08-10] MEDS: QUEtiapine 100 MG Tab PO SCH (21:03)
[2020-08-11] MEDS: oxyCODONE 5 MG Tab PO PRN ×2 (03:29→11:07)
[2020-08-11] MEDS: hydrOXYzine HCl 25 MG Tab PO PRN ×2 (03:32→15:47)
[2020-08-11] MEDS: traMADol 50 MG Tab PO PRN ×2 (03:32→17:58)
[2020-08-11] MEDS: Acetaminophen 325 MG Tab PO PRN ×3 (03:33→18:47)
[2020-08-11] MEDS: oxyCODONE 5 MG Tab PO SCH (07:49)
[2020-08-11] MEDS: Acetaminophen 325 MG Tab PO SCH ×2 (07:50→14:38)
[2020-08-11] MEDS: Omeprazole 20 MG Cap.CR PO SCH (07:51)
[2020-08-11] MEDS: Aspirin 325 MG Tab.EC PO SCH (07:51)
[2020-08-11] MEDS: Loratadine 10 MG Tab PO SCH (07:52)
[2020-08-11] MEDS: FLUoxetine 20 MG Cap PO SCH (07:52)
[2020-08-11] MEDS: Cholecalciferol (Vitamin D3) 25 MCG Tab PO SCH (07:52)
[2020-08-11] MEDS: Magnesium Oxide 400 MG Tab PO SCH (07:52)
[2020-08-11] MEDS: Metoprolol Succinate 50 MG Tab.ER PO SCH (07:53)
[2020-08-11] MEDS: Budesonide 0.5 MG/2 ML Neb Susp INH SCH ×2 (07:53→22:07)
[2020-08-11] MEDS: metFORMIN 500 MG Tab PO SCH ×3 (07:53→18:01)
[2020-08-11] MEDS: Tiotropium Bromide 4 GM Inhalation Spray (2.5mcg/1 dose; 10 doses) INH SCH (07:53)
[2020-08-11] MEDS: Diclofenac Sodium 1% Gel 100 GM Tube TOP SCH ×3 (07:54→15:39)
[2020-08-11] MEDS: KETAMINE NASBOTH SCH ×2 (12:36→22:06)
[2020-08-11] MEDS: HYDROmorphone 2 MG Tab PO PRN ×3 (14:39→21:33)
--- NOTE | 2020-08-11 17:22 | PN ---
Progress Note for MILDRED SWANN Date: 08/11/2020 Room #: VM.204 SUBJECTIVE: This is a 59-year-old admitted Tuesday for swing bed after a left shoulder surgery and then fracture. The patient denied any fall. According to her pain specialist, she had been taking more pain medications after surgery and did not remember a lot about what went on in those days. She is in extreme pain in the left shoulder. Otherwise, she does have chronic underlying pain and fibromyalgia and has been on oxycodone for many years. She currently is wanting to leave. She states her will be home tonight, so she will have family at home to help her. She had an increase from 10 mg three times a day to four times a day scheduled. She also has pain pills available 10 mg every 6 hours, so can take a total of 80 mg of oxycodone per day. Discussed with her pain specialist about weaning. Unfortunately, she is having acute pain. She has not had any trouble with her breathing. She has not been overly sedated. She did eat 80% to 100% of her meals. She actually has [employer]. The blood sugars that have been checked have been excellent. No bowel movements recorded. OBJECTIVE: Vital Signs: Her temperature 98.2, pulse 56, blood pressure 118/67, respiratory rate 15, and O2 of 96 on room air. General: She is in no acute distress. Heart: Regular rate and rhythm S1, S2 without murmur. Lungs: Lung sounds are clear to auscultation bilaterally without crackles or wheezes. Extremities: Nondistended, nontender. ASSESSMENT AND PLAN: 1. Left shoulder fracture. The patient is actually scheduled for another surgery on this on . 2. Vertigo. She reports this completely resolved since yesterday. She also has history of Meniere. 3. Chronic pain and fibromyalgia. 4. Opioid tolerance. 5. Diabetes, controlled. We will stop Accu-Cheks. 6. Essential hypertension. 7. Morbid obesity. 8. Asthma, stable without exacerbation. 9. Anxiety and depression. 10.Restless legs syndrome. 11.Anxiety and depression. She has not been getting any current treatments. 12.Anemia. Hemoglobin was 9.8 on 08/07. We will repeat it due to her upcoming surgery. The patient will rotate to Dilaudid 4 mg every 4 hours p.r.n. as discussed with the patient, [facility] who has been prescribing pain medications, and her daughter. She is agreeable to stay overnight to see how it goes. She was initially not wanting to do this. Hopefully, she tolerates it okay and can be discharged home with family tomorrow for her outpatient surgery. If she does not tolerate the Dilaudid, then she will go back to oxycodone, actually had been taking just 70 mg a day, however, that is still higher than the pain threshold. Did discuss with her that these doses do not improve the pain control and lead to more risk for unintentional overdose and . The patient is currently not on any muscle relaxants, but per her printout, has been prescribed them in the past and has had prescriptions from other providers usually Orthopedics with her multiple surgeries. MKA: 08/11/2020 16:41:44 MODL: 08/11/2020 17:05:47 /[id number]
[2020-08-11] MEDS: atorvaSTATin 40 MG Tab PO SCH (20:36)
[2020-08-11] MEDS: QUEtiapine 100 MG Tab PO SCH (20:36)
[2020-08-12] MEDS: Metoprolol Succinate 50 MG Tab.ER PO SCH ×2 (00:24→08:03)
[2020-08-12] MEDS: Diclofenac Sodium 1% Gel 100 GM Tube TOP SCH ×2 (00:24→08:05)
[2020-08-12] MEDS: traMADol 50 MG Tab PO PRN ×2 (00:25→08:04)
[2020-08-12] MEDS: hydrOXYzine HCl 25 MG Tab PO PRN (00:26)
[2020-08-12] MEDS: Acetaminophen 325 MG Tab PO SCH ×2 (01:37→08:27)
[2020-08-12] MEDS: HYDROmorphone 2 MG Tab PO PRN ×3 (01:38→09:20)
[2020-08-12 05:35] VITALS: BP 122/66
[2020-08-12 07:30] LABS: CHLORIDE,CL 105 mmol/L (98-107); SODIUM,NA 141 mmol/L (136-145)
[2020-08-12 07:36] LABS: ANION GAP 10.7 mmol/L (5-15)
[2020-08-12] MEDS ORDERED: Omeprazole 20 MG Cap.CR PO SCH (08:00)
[2020-08-12] MEDS: FLUoxetine 20 MG Cap PO SCH (08:05)
[2020-08-12] MEDS: Budesonide 0.5 MG/2 ML Neb Susp INH SCH (08:06)
[2020-08-12] MEDS: KETAMINE NASBOTH SCH (08:06)
[2020-08-12] MEDS: Tiotropium Bromide 4 GM Inhalation Spray (2.5mcg/1 dose; 10 doses) INH SCH (08:06)
[2020-08-12 08:07] VITALS: PULSE 88
--- NOTE | 2020-08-13 04:53 | DISCH ---
DATE OF SWING BED ADMISSION: 08/08/2020 PRIMARY DISCHARGE DIAGNOSES: 1. Left shoulder replacement with subsequent fracture. 2. Vertigo, possibly due to medications. Symptoms resolved. 3. Anemia. Hemoglobin up to 8.9 today, which is in her range since her recent surgery, which has been around 8-10. 4. Type 2 diabetes well controlled. The ranging hemoglobin was 8.9-10. 5. Diabetes type 2, well controlled even with holding metformin for her surgery. 6. Obesity. 7. Chronic pain with opioid dependence. 8. Anxiety and depression, not currently under treatments. 9. Essential hypertension, controlled. 10.Restless legs syndrome. 11.Asthma, stable without exacerbation. 12.Fibromyalgia. REASON FOR ADMISSION: On the date of admission, this 59-year-old female was transferred to swing bed as she was still unsteady, having vertigo, somewhat double vision, and nonweightbearing for her left arm. The patient did report to me later that she was receiving IV Dilaudid in [place] and then she was upset that she was not getting it here and also was not very happy with the care over the weekend and she was wanting to go home right away on Tuesday. She was getting over 100 morphine equivalents with her oxycodone. Discussion was done with her pain specialist and switching her over to Dilaudid was discussed with her and her daughter. She was agreeable to try it still wanting to go home, but in the end, she stayed in the hospital and took 4 mg of Dilaudid every 4 hours and it seems to do okay other than when she had taken a shower and she just felt she was behind on her pain. The patient is also on tramadol, but had only taken it twice instead of 3 times per day. She was actually scheduled on short-acting oxycodone and had p.r.n. on discharge from [place]. Discussion was had with her to schedule tramadol 3 times a day and use the Dilaudid p.r.n., 20 pills were prescribed to last until her surgery which is planned for . The patient's lab work today was done and it did look well enough to proceed with surgery. She has already began holding her aspirin, er vitamins, and her metformin in anticipation for surgery and instructions were given for her to take her metoprolol that morning. PHYSICAL EXAMINATION: Discharging Vitals: Included temperature 98, pulse 55, blood pressure 122/66, respiratory rate 14, and O2 of 94% on room air. General: She is in no acute distress. She does appear a little pale. Heart: Regular rate and rhythm. S1, S2 without murmur. Lungs: Sounds are clear to auscultation bilaterally without crackles or wheezes. Extremities: Warm and dry. There is no edema. Mental Status: She is alert and orientated x3. Her mood is appropriate. She is not anxious or depressed. Currently, the left shoulder is in a sling. Radial pulses 2+. She has some tenderness in the shoulder to palpation but no swelling or bruising. DISCHARGE LABORATORY WORK: Again white count normal 8.9, hemoglobin 8.9, platelets 667. Sodium 141, potassium 3.7, chloride 105, bicarb 29, BUN 10, creatinine 0.8, glucose 92, calcium 8.5. In fact, we discontinued Accu-Chek because her blood sugars were also excellent between 91 and 121. DISCHARGE PLANS AND INSTRUCTIONS: The patient is going home with family. She will follow up for Orthopedic Surgery this for that left shoulder fracture with Dr. Yoon. She will follow up with her pain specialist on 08/19. Messages were sent to Orthopedics to fill her pain pills after surgery to last until Tuesday. I have not received a response. I did also refill an 8-day supply of tramadol to last until her next appointment. She will follow up with myself in the clinic after her surgery. They will call for an appointment. Again, instructions were given to hold medications and take metoprolol the day of surgery. MKA: 08/12/2020 13:19:38 MODL: 08/13/2020 04:46:14 /[id number]
== END 2020-08-12 09:40 | disposition home or self-care (01) | DRG 563 ==
LOC: VM.MS 12:09 → UNDOADMIN 12:09
PROVIDERS: ADMIT Internal Medicine; ATTEND Internal Medicine
DX: S42.252A Displaced fracture of greater tuberosity of left humerus, initial encounter for closed fracture (principal); F11.20 Opioid dependence, uncomplicated; X58.XXXA Exposure to other specified factors, initial encounter; Z96.612 Presence of left artificial shoulder joint; D64.9 Anemia, unspecified; E11.9 Type 2 diabetes mellitus without complications; G89.29 Other chronic pain; F41.9 Anxiety disorder, unspecified; F32.9 Major depressive disorder, single episode, unspecified; I10 Essential (primary) hypertension; G25.81 Restless legs syndrome; J45.909 Unspecified asthma, uncomplicated; M79.7 Fibromyalgia; H53.2 Diplopia; M54.9 Dorsalgia, unspecified; M81.0 Age-related osteoporosis without current pathological fracture; E66.01 Morbid (severe) obesity due to excess calories; M19.90 Unspecified osteoarthritis, unspecified site; E55.9 Vitamin D deficiency, unspecified; E78.5 Hyperlipidemia, unspecified; Z90.710 Acquired absence of both cervix and uterus; Z90.49 Acquired absence of other specified parts of digestive tract; Z88.8 Allergy status to other drugs, medicaments and biological substances; Z79.899 Other long term (current) drug therapy; Z79.890 Hormone replacement therapy; Z68.35 Body mass index [BMI] 35.0-35.9, adult; Z98.890 Other specified postprocedural states; Z79.891 Long term (current) use of opiate analgesic; Z79.84 Long term (current) use of oral hypoglycemic drugs
CPT/HCPCS: 36415; 80048; 82947; 85025; 97161-GP; A9270-GY